=== PATIENT | female | born 1960 | race Caucasian/White ===

== ENCOUNTER 2020-08-23 11:03 | Emergency (ER) | payer MEDICARE, SELFPAY ==
--- NOTE | 2020-08-23 11:10 | ED.GENADULT ---
HPI - General Adult General Chief complaint: Upper Respiratory Infection Stated complaint: sore throat Time Seen by Provider: 08/23/20 11:11 Source: patient and RN notes reviewed Mode of arrival: ambulatory Limitations: no limitations History of Present Illness HPI narrative: 60-year-old female presents with complaints of sore throat, sinus drainage, fatigue, and facial pressure for the past 7 days. Symptoms has increased over the pass 48-72 hours. Mucinex and Zyrtec without relief. No high fevers, drooling, neck or throat swelling. Pain is bilateral. Hurts to swallow. Exacerbation factors consist of eating and drinking. No rhinorrhea. Nasal congestion. No voice change. No nausea, vomiting, or abdominal pain. Tolerating liquids well. Denies chills, dyspnea, difficulty swallowing, jaw pain, dental pain, facial pain, foreign body sensation, and rash. Remains active. LMP Post-menopausal. The patient reports she have not been diagnosed with COVID-19. The patient reports she is not waiting for the results of a COVID-19 lab test. The patient reports she do not have fever, chills, or weakness. The patient reports she do not have a new or worsening cough or shortness of breath. Denies chest pain. The patient reports she do not have any rhinorrhea, congestion, loss of taste, and diarrhea. Denies recent traveling. Denies concerns for COVID-19 or exposures been home with limited outdoor exposure except for essential household needs and return home. At this time, patient is not suspected of having COVID-19. Some parts of this dictation were generated by voice recognition software and may contain typographical and/or grammatical inaccuracies. Related Data Home Medications Medication Instructions Recorded Confirmed estradiol 1 gm VAGINAL 3XW gm 05/20/20 08/23/20 hydrocodone 10 mg-acetaminophen 1 tablet PO TID tablet 05/20/20 08/23/20 325 mg tablet olopatadine 0.2 % eye drops 1 drop OPHTHALMIC (EYE) DAILY ml 05/20/20 08/23/20 Allergies Allergy/AdvReac Type Severity Reaction Status Date / Time No Known Allergies Allergy Verified 08/23/20 11:20 Review of Systems Review of Systems: Narrative: CONSTITUTIONAL: Denies fever, chills, sweats. Complains of fatigue. EYES: Denies visual changes, redness, discharge. ENT: Denies rhinorrhea, otalgia. Complains of sore throat, congestion. CARDIOVASCULAR: Denies chest pain, palpitations, edema. RESPIRATORY: Denies dyspnea, wheezing. Complains of cough. GASTROINTESTINAL: Denies abdominal pain, nausea, vomiting, diarrhea. GENITOURINARY: Denies dysuria, hematuria, abnormal discharge. SKIN: Denies rash or itching. MUSCULOSKELETAL: Denies acute back pain, joint pain, or myalgia. NEUROLOGIC: Denies numbness or focal weakness. PSYCHIATRIC: Denies anxiety or depression. All systems reviewed & are unremarkable except as noted in HPI and below. [facility] Past Medical History Medical History (Updated 08/23/20 @ 11:47 by PRASANNA Lares) Age-related osteoporosis without current pathological fracture Back injury Bipolar II disorder Chronic GERD Degenerative disc disease, cervical Dyspepsia Hypothyroidism, unspecified Mixed hyperlipidemia Post-menopausal Surgical History Surgical History (Updated 08/23/20 @ 11:47 by PRASANNA Lares) History of tonsillectomy History of tubal ligation Family History Family History Father Hypertension Family history of mental disorder Family history of cardiovascular disease Cerebrovascular accident Family history of arthritis Mother Family history of malignant neoplasm of breast in first degree relative Family history of malignant neoplasm of ovary Family history of mental disorder Other Diabetes mellitus Social History Social History (Updated 08/23/20 @ 11:13 by PRASANNA Lares) Smoking status: Former smoker Tobacco type: cigarettes Seco
[2020-08-23 11:13] VITALS: BP 122/96; PULSE 79; RESP 20; TEMP 37.1; O2SAT 100
== END 2020-08-23 11:52 | disposition home or self-care (01) ==
PROVIDERS: Emergency Provider Nurse Practitioner Family; PCP Internal Medicine
DX: J01.90 Acute sinusitis, unspecified (principal); J02.9 Acute pharyngitis, unspecified; Z20.828 Contact with and (suspected) exposure to other viral communicable diseases; Z87.891 Personal history of nicotine dependence; M81.0 Age-related osteoporosis without current pathological fracture; K21.9 Gastro-esophageal reflux disease without esophagitis; E03.9 Hypothyroidism, unspecified; E78.2 Mixed hyperlipidemia
CPT/HCPCS: 87081; 87804; 87880; 99213; G0463

== ENCOUNTER 2020-11-06 13:19 | Outpatient (CLI) | payer MEDICARE, SELFPAY ==
[2020-11-06 13:56] LABS: Hematocrit 41.1 % (37.0-47.0); Hemoglobin 13.7 g/dL (12.0-15.0); Mean Corpuscular HGB Conc 33.3 g/dl (32-36); Mean Corpuscular Hemoglobin 31.6 pg (26-34); Mean Corpuscular Volume 94.9 fl (80-100); Platelet Count Result 348 k/mm3 (150-375); Red Blood Count 4.33 M/mm3 (4.2-5.4); Red Cell Distribution Width 13.2 % (11.5-14.5); White Blood Count 8.3 K/mm3 (4.5-10.0)
[2020-11-06 14:12] LABS: Alanine Aminotransferase 22 U/L (4-35); Anion Gap 8 mmol/L (8-16); Aspartate Amino Transferase 34 U/L (14-36); Blood Urea Nitrogen 16 mg/dL (7-17); Calcium 9.7 mg/dL (8.4-10.2); Carbon Dioxide 27 mmol/L (22-30); Chloride 103 mmol/L (98-107); Cholesterol 192 mg/dL (0-200); Estimated Glomerular Filt Rate > 60; Glucose 100 mg/dL (65-105); HDL Direct 76 mg/dL; Magnesium 2.7 mg/dL (1.6-2.3); Potassium 4.8 mmol/L (3.4-5.0); Sodium 138 mmol/L (137-145); Triglycerides 321 mg/dL (<150); Uric Acid 4.2 mg/dL (2.5-7.5)
[2020-11-06 14:23] LABS: LDL Cholesterol Direct 62 mg/dL
[2020-11-06 15:07] LABS: Vitamin D 25 Hydroxy 61.4 ng/mL
[2020-11-06 15:18] LABS: Folic Acid > 20.0 ng/mL (2.76->20); Vitamin B12 > 1000.0 pg/mL (239-931)
== END 2020-11-06 13:20 | disposition home or self-care (01) ==
LOC: ANHLAB 13:21
PROVIDERS: PCP Internal Medicine; Visit Provider Internal Medicine
DX: K21.9 Gastro-esophageal reflux disease without esophagitis (principal); E78.2 Mixed hyperlipidemia; E03.9 Hypothyroidism, unspecified; F31.81 Bipolar II disorder; M81.0 Age-related osteoporosis without current pathological fracture
CPT/HCPCS: 36415; 77063; 77067; 80048; 80061; 82306; 82607; 82746; 83735; 84450; 84460; 84550; 85027

== ENCOUNTER 2020-11-06 13:46 | Outpatient (CLI) | payer MEDICARE, SELFPAY ==
--- NOTE | ~2020-11-06 | MM_ITS ---
EXAMINATION: MM screening chencho BI w mychal HISTORY: Screening mammogram, family history of breast cancer in her mother. TECHNIQUE: Craniocaudal and mediolateral oblique 3-D tomosynthesis images were obtained and synthetic 2-D images were generated. CAD analysis was submitted and interpreted. COMPARISON: 09/19/2019, 08/06/2018, 07/01/2017 BREAST PARENCHYMAL COMPOSITION: The breasts are heterogeneously dense, which may obscure small masses . FINDINGS: There is no evidence of suspicious mass, calcification, or architectural distortion to sugg est malignancy in either breast. There has been no suspicious interval change. IMPRESSION: 1. No mammographic evidence of malignancy. 2. Recommend routine screening mammography in one year. BI-RADS Category 1: Negative Reviewed, dictated and finalized at location A. 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
== END 2020-11-06 13:47 | disposition home or self-care (01) ==
LOC: ANHIMG 13:48
PROVIDERS: PCP Internal Medicine; Visit Provider Obstetrics & Gynecology
DX: Z12.31 Encounter for screening mammogram for malignant neoplasm of breast (principal)
CPT/HCPCS: 77063; 77067

== ENCOUNTER 2021-04-17 10:51 | Outpatient (CLI) | payer MEDICARE, SELFPAY ==
--- NOTE | ~2021-04-17 | XR_ITS ---
EXAMINATION: XR chest 2V DATE: 04/17/2021 11:55 INDICATION: Bilateral anterior chest pain. TECHNIQUE: Frontal and lateral views of the chest were obtained. COMPARISON: Chest 2 views 11/26/2015 FINDINGS: A calcified right lung nodule is consistent with old granulomatous disease. There is mild s carring at the lung apices. No pleural effusion or pneumothorax. The heart size is normal. IMPRESSION: 1. Stable mild scarring at the lung apices. Reviewed, dictated and finalized at location B.
== END 2021-04-17 10:52 | disposition home or self-care (01) ==
LOC: ANHIMG 10:53
PROVIDERS: PCP Internal Medicine; Visit Provider Internal Medicine
DX: R07.9 Chest pain, unspecified (principal); R91.8 Other nonspecific abnormal finding of lung field
CPT/HCPCS: 71046

== ENCOUNTER 2021-05-29 13:51 | Outpatient (CLI) | payer MEDICARE, SELFPAY ==
--- NOTE | ~2021-05-29 | XR_ITS ---
EXAMINATION: XR ribs LT 2V DATE: 05/29/2021 15:04 INDICATION: Left rib pain. TECHNIQUE: 2 views of the left ribs on 3 radiographs were obtained. COMPARISON: Chest 2 views 04/17/2021 FINDINGS: There is no left-sided pneumonia, pleural effusion, or pneumothorax. The heart size is norm al. IMPRESSION: 1. No rib fracture. Reviewed, dictated and finalized at location A. IMPRESSION: 1. No rib fracture.
--- NOTE | ~2021-05-29 | MMUS_ITS ---
EXAMINATION: MM diagnostic chencho LT w mychal, US breast LT limited HISTORY: Palpable lump in the upper outer quadrant left breast. TECHNIQUE: Craniocaudal, mediolateral, and mediolateral oblique 3-D tomosynthesis images of the left breast were performed and synthetic 2-D images were generated. CAD analysis was submitted and interpr eted. High resolution limited left breast ultrasound was performed. COMPARISON: 11/06/2020, 09/19/2019, 08/06/2018 BREAST PARENCHYMAL COMPOSITION: The breasts are heterogeneously dense, which may obscure small masses . FINDINGS: MAMMOGRAPHIC FINDINGS: There is no evidence of suspicious mass, calcification, or architectural distortion to suggest malig sandra. There has been no suspicious interval change. ULTRASOUND: There is a 1.6 x 0.5 cm hypoechoic area at the 3:00 location 3 cm from the nipple responding to the p alpable abnormality of concern which is in association with a lumpectomy scar and most consistent wit h postsurgical change. No suspicious cystic or solid mass is identified. IMPRESSION: 1. No suspicious mammographic or sonographic correlate is identified for the reported palpable abnorm ality of concern. Findings are most consistent with postsurgical change. Further evaluation at this t maryjane should be based on clinical assessment. Continued follow-up physical examination is recommended. 2. Recommend routine screening mammography in one year. BI-RADS Category 2: Benign finding(s). Reviewed, dictated and finalized at location A. IMPRESSION: 1. No suspicious mammographic or sonographic correlate is identified for the re ported palpable abnormality of concern. Findings are most consistent with posts urgical change. Further evaluation at this time should be based on clinical ass essment. Continued follow-up physical examination is recommended. 2. Recommend routine screening mammography in one year. BI-RADS Category 2: Benign finding(s).
== END 2021-05-29 13:52 | disposition home or self-care (01) ==
PROVIDERS: PCP Internal Medicine; Visit Provider Obstetrics & Gynecology
DX: N63.21 Unspecified lump in the left breast, upper outer quadrant (principal)
CPT/HCPCS: 71100; 76642; 77061; 77065; G0279

== ENCOUNTER 2021-07-11 14:23 | Outpatient (CLI) | payer MEDICARE, SELFPAY ==
--- NOTE | ~2021-07-11 | CT_ITS ---
EXAMINATION:CT diagnostic chest wo con DATE: 07/11/2021 15:00 INDICATION: Chest pain, unspecified. Left rib pain after fall. TECHNIQUE: Computed tomography (CT) of the chest was performed without intravenous contrast. Automate d exposure control and iterative reconstruction technique were employed. The dose-length product (DLP ) was 138.47 mGy-cm. COMPARISON: Left rib radiographs 05/29/2021 FINDINGS: There is mild scarring at the lung apices. There is mild atelectasis bilaterally. There is a left posteromedial diaphragmatic hernia containing fat. Calcified right lung nodules and calcified right hilar and mediastinal lymph nodes are consistent with old granulomatous disease. No pleural eff usion. The heart size is normal. No pericardial effusion. There is mild thoracic spondylosis. Thoraci c dextroscoliosis is noted. There are healed fracture deformities of the anterior third ribs bilatera lly. IMPRESSION: 1. Healed fracture deformities of the anterior third ribs bilaterally. Reviewed, dictated and finalized at location A.
== END 2021-07-11 14:24 | disposition home or self-care (01) ==
PROVIDERS: PCP Internal Medicine; Visit Provider Internal Medicine
DX: R07.9 Chest pain, unspecified (principal)
CPT/HCPCS: 71250

== ENCOUNTER 2021-09-15 10:17 | Outpatient (CLI) | payer MEDICARE, SELFPAY ==
[2021-09-15 11:06] LABS: Cholesterol 227 mg/dL (0-200); HDL Direct 85 mg/dL; Triglycerides 200 mg/dL (<150)
[2021-09-15 11:18] LABS: LDL Cholesterol Direct 72 mg/dL
[2021-09-15 11:50] LABS: Valproic Acid < 10.0 ug/mL (50-120)
== END 2021-09-15 10:18 | disposition home or self-care (01) ==
PROVIDERS: PCP Internal Medicine; Visit Provider Internal Medicine
DX: E03.9 Hypothyroidism, unspecified (principal); Z51.81 Encounter for therapeutic drug level monitoring; E78.5 Hyperlipidemia, unspecified; Z79.899 Other long term (current) drug therapy
CPT/HCPCS: 36415; 80061; 80164; 84443

== ENCOUNTER 2021-11-28 12:38 | Outpatient (CLI) | payer MEDICARE, SELFPAY ==
--- NOTE | ~2021-11-28 | DEXA_ITS ---
Bone Density Report Name: ANGELI BURNHAM Age: 61 Sex: Female Ethnicity: White Date of : 1960 Indication: osteopenia; monitoring treatment; postmenopausal Referring Provider: Indiana Morales Study: Bone densitometry was performed. Exam Date: November 28, 2021 Accession number: [id number] Bone Density: Region BMD T-score Z-score Classification AP Spine (L1-L4) 0.815 -2.1 -0.7 Osteopenia Femoral Neck (Left) 0.695 -1.4 -0.1 Osteopenia Total Hip (Left) 0.819 -1.0 0.0 Normal Total Hip Bilateral Avg 0.830 -0.9 0.1 Normal Femoral Neck (Right) 0.750 -0.9 0.4 Normal Total Hip (Right) 0.840 -0.8 0.1 Normal World Health Organization criteria for BMD impression classify patients as: Normal (T-score at or above -1.0), Osteopenia (T-score between -1.0 and -2.5), or Osteoporosis (T-score at or below -2.5). 10-year Fracture Risk: FRAX not reported because: Treated for osteoporosis Previous Exams: Region Exam Age BMD T-score BMD Change BMD Change Date g/cm2 vs Baseline vs Previous AP Spine(L1-L4) 11/28/2021 61 0.815 -2.1 0.069(9.2%)* -0.025(-3.0%)* 08/06/2018 58 0.841 -1.9 0.094(12.6%)* 0.039(4.9%)* 07/13/2016 56 0.802 -2.2 0.055(7.4%)* 0.055(7.4%)* 07/09/2014 54 0.747 -2.7 Total Hip(Left) 11/28/2021 61 0.819 -1.0 0.038(4.9%)* -0.031(-3.6%)* 08/06/2018 58 0.850 -0.8 0.069(8.8%)* 0.022(2.7%) 07/13/2016 56 0.827 -0.9 0.047(6.0%)* 0.047(6.0%)* 07/09/2014 54 0.781 -1.3 Total Hip(Right) 11/28/2021 61 0.840 -0.8 0.017(2.0%) -0.010(-1.2%) 08/06/2018 58 0.850 -0.8 0.027(3.3%) -0.002(-0.2%) 07/13/2016 56 0.852 -0.7 0.029(3.5%)* 0.029(3.5%)* 07/09/2014 54 0.823 -1.0 *Denotes significance at 95% confidence level, LSC for AP Spine = 0.022 g/cm2, LSC for Total Hip = 0.027 g/cm2 Clinical Information Provided by Patient: Is being treated for osteoporosis Has used the following medications: Fosamax (i.e. alendronate), Calcium Patient maximum height was 64 Menopause Age: 53 No regular weight bearing exercise Onset of menses at age 18 Number of children 3 Impression: The patient has low bone mass, based on the Total Spine T-score. The BMD for the AP Spine(L1-L4) decreased, changing by -3.0% since the last DXA exam. The BMD for the Total Hip(Left) decreased, changing by -3.6% since the last DXA exam. Discussion: SIGNIFICANT BONE LOSS OBSERVED. Adherence to therapy (inclu
== END 2021-11-28 12:39 | disposition home or self-care (01) ==
LOC: ANHIMG 12:39
PROVIDERS: PCP Internal Medicine; Visit Provider Nurse Practitioner
DX: M81.0 Age-related osteoporosis without current pathological fracture (principal); M85.88 Other specified disorders of bone density and structure, other site; M85.852 Other specified disorders of bone density and structure, left thigh
CPT/HCPCS: 77080

== ENCOUNTER → 2021-12-13 09:36 | Outpatient (CLI) | payer MEDICARE, SELFPAY ==
[2021-12-13 20:22] LABS: SARS-CoV-2 RNA PCR Negative
== END ==
PROVIDERS: PCP Internal Medicine; Visit Provider Internal Medicine
DX: R68.89 Other general symptoms and signs (principal); Z20.822 Contact with and (suspected) exposure to COVID-19
CPT/HCPCS: C9803; U0003; U0005

== ENCOUNTER 2022-07-31 09:11 | Outpatient (CLI) | payer MEDICARE, SELFPAY ==
[2022-07-31 09:56] LABS: Alanine Aminotransferase 36 U/L (6-35); Albumin Level 4.7 g/dL (3.5-5.1); Alkaline Phosphatase 77 U/L (38-126); Anion Gap 12 mmol/L (8-16); Aspartate Amino Transferase 48 U/L (14-36); Bilirubin,Total 0.5 mg/dL (0.2-1.3); Blood Urea Nitrogen 15 mg/dL (7-17); Carbon Dioxide 26 mmol/L (22-30); Chloride 100 mmol/L (98-107); Cholesterol 220 mg/dL (0-200); Estimated Glomerular Filt Rate > 60; Glucose 96 mg/dL (65-110); HDL Direct 74 mg/dL; Potassium 4.3 mmol/L (3.4-5.0); Sodium 138 mmol/L (137-145); Triglycerides 248 mg/dL (<150)
[2022-07-31 10:06] LABS: LDL Cholesterol Direct 73 mg/dL
[2022-07-31 10:11] LABS: Vitamin D 25 Hydroxy 53.9 ng/mL
== END 2022-07-31 09:12 | disposition home or self-care (01) ==
PROVIDERS: PCP Internal Medicine; Visit Provider Internal Medicine
DX: E78.2 Mixed hyperlipidemia (principal); Z13.21 Encounter for screening for nutritional disorder; G47.00 Insomnia, unspecified
CPT/HCPCS: 36415; 80053; 80061; 82306; 84443

== ENCOUNTER 2023-02-08 08:15 | Outpatient (CLI) | payer MEDICARE, SELFPAY ==
[2023-02-08 09:31] LABS: Alanine Aminotransferase 27 U/L (6-35); Albumin Level 4.8 g/dL (3.5-5.1); Alkaline Phosphatase 77 U/L (38-126); Anion Gap 7 mmol/L (8-16); Aspartate Amino Transferase 39 U/L (14-36); Bilirubin,Total 0.7 mg/dL (0.2-1.3); Blood Urea Nitrogen 18 mg/dL (7-17); Calcium 9.6 mg/dL (8.4-10.2); Carbon Dioxide 27 mmol/L (22-30); Chloride 105 mmol/L (98-107); Estimated Glomerular Filt Rate > 60; Glucose 92 mg/dL (65-110); Potassium 4.3 mmol/L (3.4-5.0); Sodium 139 mmol/L (137-145)
== END 2023-02-08 08:16 | disposition home or self-care (01) ==
PROVIDERS: PCP Internal Medicine; Visit Provider Internal Medicine
DX: R79.89 Other specified abnormal findings of blood chemistry (principal); F31.81 Bipolar II disorder; E03.9 Hypothyroidism, unspecified
CPT/HCPCS: 36415; 80053; 84439; 84443

== ENCOUNTER 2023-02-16 14:53 | Outpatient (CLI) | payer MEDICARE, SELFPAY ==
--- NOTE | ~2023-02-16 | MM_ITS ---
EXAMINATION: MM screening chencho BI w mychal HISTORY: Screening TECHNIQUE: Craniocaudal and mediolateral oblique 3-D tomosynthesis images were obtained and synthetic 2-D images were generated. CAD analysis was submitted and interpreted. COMPARISON: Comparison to multiple prior studies sequentially, with oldest reviewed study dated 07/2015. BREAST PARENCHYMAL COMPOSITION: The breasts are heterogeneously dense, which may obscure small masses FINDINGS: There are developing bilateral breast asymmetries involving the upper outer quadrant of the right breast and scattered in the left breast. No suspicious calcifications. IMPRESSION: 1. Developing bilateral breast asymmetries. 2. Additional mammographic views and possible breast ultrasound are recommended. BI-RADS Category 0: Incomplete: Needs additional imaging evaluation. Reviewed, dictated and finalized at location A. IMPRESSION: 1. Developing bilateral breast asymmetries. 2. Additional mammographic views and possible breast ultrasound are recommended . BI-RADS Category 0: Incomplete: Needs additional imaging evaluation.
== END 2023-02-16 14:54 | disposition home or self-care (01) ==
PROVIDERS: PCP Internal Medicine; Visit Provider Nurse Practitioner Obstetrics & Gynecology
DX: Z12.31 Encounter for screening mammogram for malignant neoplasm of breast (principal); R92.8 Other abnormal and inconclusive findings on diagnostic imaging of breast
CPT/HCPCS: 77063; 77067

== ENCOUNTER 2023-04-28 10:36 | Outpatient (CLI) | payer MEDICARE, SELFPAY ==
[2023-04-28 12:20] LABS: Strep Group A RT-PCR NOT DETECTED (Negative)
== END 2023-04-28 10:37 | disposition home or self-care (01) ==
LOC: ANHLAB 10:39
PROVIDERS: PCP Family Medicine; Visit Provider Nurse Practitioner Family
DX: J02.9 Acute pharyngitis, unspecified (principal)
CPT/HCPCS: 87651

== ENCOUNTER 2023-06-07 11:25 | Outpatient (CLI) | payer MEDICARE, MEDICAID, SELFPAY ==
--- NOTE | ~2023-06-07 | MMUS_ITS ---
EXAMINATION: MM diagnostic chencho BI w mychal, US breast BI complete HISTORY: Follow-up breast asymmetries TECHNIQUE: Additional 3-D tomosynthesis images of the breasts were performed and synthetic 2-D images were generated. CAD analysis was submitted and interpreted. High resolution bilateral complete breas t ultrasound was performed. COMPARISON: Comparison to multiple prior studies sequentially, with oldest reviewed study dated 07/01. BREAST PARENCHYMAL COMPOSITION: The breasts are heterogeneously dense, which may obscure small masses FINDINGS: MAMMOGRAPHIC FINDINGS: There are bilateral breast asymmetries which are less apparent with spot compression and mediolateral views using, most likely superimposed fibroglandular tissue. ULTRASOUND: Complete bilateral US of all 4 quadrants of the breasts and retroareolar region was reviewed. Right breast ultrasound: There are multiple cysts of the right breast. At 1:00, 1 cm from the nipple is an irregular shaped hypoechoic mass measuring 7 mm with some angular margins, mixed posterior atte nuation, parallel orientation and no internal vascularity. Left breast: At 12:00, near the nipple there is an irregular shaped hypoechoic mass measuring 5 mm wi th antiparallel configuration, low level internal echoes, no posterior features. There are multiple c ysts of the left breast. At 4:00 there is an irregular shaped antiparallel hypoechoic mass with mixed posterior attenuation measuring 7 mm maximum dimension. IMPRESSION: 1. Abnormal bilateral breast masses by ultrasound. 2. Bilateral ultrasound-guided breast biopsies recommended, including the right breast at 1:00, 1 cm from the nipple and in the left breast at 12:00 near the nipple and 4:00. BI-RADS category 4, suspicious findings. Reviewed, dictated and finalized at location A. IMPRESSION: 1. Abnormal bilateral breast masses by ultrasound. 2. Bilateral ultrasound-guided breast biopsies recommended, including the right breast at 1:00, 1 cm from the nipple and in the left breast at 12:00 near the nipple and 4:00. BI-RADS category 4, suspicious findings.
== END 2023-06-07 11:26 | disposition home or self-care (01) ==
LOC: ANHIMG 11:27
PROVIDERS: PCP Family Medicine; Visit Provider Obstetrics & Gynecology
DX: R92.8 Other abnormal and inconclusive findings on diagnostic imaging of breast (principal)
CPT/HCPCS: 76641; 77062; 77066; G0279

== ENCOUNTER 2023-07-13 09:29 | Outpatient (CLI) | payer MEDICARE, SELFPAY ==
[2023-07-13 10:31] LABS: Basophils Percent Auto 0.5 % (0.2-1.2); Eosinophils Absolute Auto 0.1 K/mm3 (0-0.3); Hematocrit 45.7 % (37.0-47.0); Hemoglobin 14.7 g/dL (12.0-15.0); Immature Granulocyte Absolute 0.02 K/mm3 (0.00-0.031); Immature Granulocyte Percent A 0.4 % (0-0.5); Lymphocytes Absolute Auto 2.04 K/mm3 (0.9-3.2); Lymphocytes Percent Auto 36.3 % (18.3-44.2); Mean Corpuscular HGB Conc 32.2 g/dl (32-36); Mean Corpuscular Hemoglobin 31.3 pg (26-34); Mean Corpuscular Volume 97.2 fl (80-100); Mean Platelet Volume 10.3 fl (7.4-10.4); Monocytes Absolute Auto 0.6 K/mm3 (0.1-0.6); Monocytes Percent Auto 10.9 % (2.6-8.5); Neutrophils Absolute Auto 2.8 K/mm3 (1.3-6.7); Neutrophils Percent Auto 49.9 % (45.5-73.1); Platelet Count Result 312 k/mm3 (150-375); Red Cell Distribution Width 13.3 % (11.5-14.5); White Blood Count 5.6 K/mm3 (4.5-10.0)
[2023-07-13 10:52] LABS: Alanine Aminotransferase 43 U/L (6-35); Albumin Level 4.7 g/dL (3.5-5.1); Alkaline Phosphatase 80 U/L (38-126); Anion Gap 11 mmol/L (8-16); Aspartate Amino Transferase 54 U/L (14-36); Bilirubin,Total 0.9 mg/dL (0.2-1.3); Blood Urea Nitrogen 17 mg/dL (7-17); Calcium 9.6 mg/dL (8.4-10.2); Carbon Dioxide 26 mmol/L (22-30); Chloride 101 mmol/L (98-107); Estimated Glomerular Filt Rate > 60; Glucose 98 mg/dL (65-110); HDL Direct 73 mg/dL; Potassium 3.9 mmol/L (3.4-5.0); Sodium 138 mmol/L (137-145); Triglycerides 444 mg/dL (<150)
[2023-07-13 11:00] LABS: LDL Cholesterol Direct 159 mg/dL
[2023-07-13 11:57] LABS: Cholesterol 395 mg/dL (0-200)
== END 2023-07-13 09:30 | disposition home or self-care (01) ==
LOC: ANHLAB 09:31
PROVIDERS: PCP Family Medicine; Visit Provider Nurse Practitioner Family
DX: Z51.81 Encounter for therapeutic drug level monitoring (principal); E03.9 Hypothyroidism, unspecified; R79.89 Other specified abnormal findings of blood chemistry; G47.00 Insomnia, unspecified; R07.9 Chest pain, unspecified
CPT/HCPCS: 36415; 80053; 80061; 84443; 85025

== ENCOUNTER 2023-10-19 08:34 | Outpatient (CLI) | payer MEDICARE, MEDICAID, SELFPAY ==
--- NOTE | ~2023-10-19 | US_ITS ---
US abdomen limited INDICATION: Abnormal lab values. PROCEDURE: Realtime right upper abdominal ultrasound. COMPARISON: No prior studies for comparison. FINDINGS: The pancreas is normal without focal mass or pancreatic ductal dilation. Liver echotexture is increased, consistent with fatty infiltration. There is normal directional flow in the portal ve in. The gallbladder is normal without stones, gallbladder wall thickening or pericholecystic fluid. Comm on bile duct measures 3 mm. No sonographic Motley's sign. IMPRESSION: 1: Hepatic steatosis. Reviewed, dictated and finalized at location L. 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
== END 2023-10-19 08:35 | disposition home or self-care (01) ==
LOC: ANHIMG 08:37
PROVIDERS: PCP Family Medicine; Visit Provider Family Medicine
DX: R74.8 Abnormal levels of other serum enzymes (principal); K76.0 Fatty (change of) liver, not elsewhere classified
CPT/HCPCS: 76705

== ENCOUNTER 2024-03-03 13:07 | Outpatient (CLI) | payer MEDICARE, MEDICAID, SELFPAY ==
--- NOTE | ~2024-03-03 | DEXA_ITS ---
Bone Density Report Name: ANGELI BURNHAM Age: 63 Sex: Female Ethnicity: White Date of : 1960 Indication: osteopenia; rheumatoid arthritis; Referring Provider: ALANNAH ALCALA Study: Bone densitometry was performed. Exam Date: March 03, 2024 Accession number: [id number] Bone Density: Region BMD T-score Z-score Classification AP Spine(L1-L4) 0.824 -2.0 -0.4 Osteopenia Femoral Neck (Left) 0.698 -1.4 0.0 Osteopenia Total Hip (Left) 0.826 -1.0 0.1 Normal Femoral Neck (Right) 0.699 -1.4 0.1 Osteopenia Total Hip (Right) 0.811 -1.1 0.0 Osteopenia Total Hip Mean 0.819 -1.1 0.1 Osteopenia World Health Organization criteria for BMD impression classify patients as: Normal (T-score at or above -1.0), Osteopenia (T-score between -1.0 and -2.5), or Osteoporosis (T-score at or below -2.5). 10-year Fracture Risk(1): Major Osteoporotic Fracture 10% Hip Fracture 0.9% Reported Risk Factors: [place] (), Neck BMD=0.698, BMI=23.7, rheumatoid arthritis (1) FRAX(R) Version 3.08. Fracture probability calculated for an untreated patient. Fracture probability may be lower if the patient has received treatment. Previous Exams: Region Exam Age BMD T-score BMD Change BMD Change Date g/cm2 vs Baseline vs Previous AP Spine (L1-L4) 03/03/2024 63 0.824 -2.0 0.078 (10.4%)* 0.009 (1.1%) 11/28/2021 61 0.815 -2.1 0.069 (9.2%)* -0.025 (-3.0%) 08/06/2018 58 0.841 -1.9 0.094 (12.6%)* 0.039 (4.9%)* 07/13/2016 56 0.802 -2.2 0.055 (7.4%)* 0.055 (7.4%)* 07/09/2014 54 0.747 -2.7 Total Hip(Left) 03/03/2024 63 0.826 -1.0 0.045 (5.8%)* 0.007 (0.9%) 11/28/2021 61 0.819 -1.0 0.038 (4.9%)* -0.031 (-3.6%) 08/06/2018 58 0.850 -0.8 0.069 (8.8%)* 0.022 (2.7%) 07/13/2016 56 0.827 -0.9 0.047 (6.0%)* 0.047 (6.0%)* 07/09/2014 54 0.781 -1.3 Total Hip(Right) 03/03/2024 63 0.811 -1.1 -0.012 (-1.5%) -0.029 (-3.5%) 11/28/2021 61 0.840 -0.8 0.017 (2.0%) -0.010 (-1.2%) 08/06/2018 58 0.850 -0.8 0.027 (3.3%) -0.002 (-0.2%) 07/13/2016 56 0.852 -0.7 0.029 (3.5%)* 0.029 (3.5%)* 07/09/2014 54 0.823 -1.0 *Denotes significance at 95% confidence level, LSC for AP Spine = 0.022 g/cm2, LSC for Total Hip = 0.027 g/cm2 Clinical Information Provided by Patient: Has rheumatoid arthritis Has used the following medications: HRT (i.e. estrogen/hormone therapy), Vitamin D, Calcium Patient maximum height was 64.5 Menopause Age:
== END 2024-03-03 13:08 | disposition home or self-care (01) ==
LOC: ANHIMG 13:09
PROVIDERS: PCP Family Medicine; Visit Provider Family Medicine
DX: M81.0 Age-related osteoporosis without current pathological fracture (principal); M85.88 Other specified disorders of bone density and structure, other site; M85.852 Other specified disorders of bone density and structure, left thigh; M85.851 Other specified disorders of bone density and structure, right thigh
CPT/HCPCS: 77080

== ENCOUNTER 2024-08-15 13:42 | Outpatient (CLI) | payer MEDICARE, MEDICAID, SELFPAY ==
[2024-08-16 21:09] LABS: Amphetamines NEGATIVE ng/mL (<500); Barbiturates NEGATIVE ng/mL (<300); Benzodiazepines POSITIVE ng/mL (<100); Cocaine Metabolite NEGATIVE ng/mL (<150); Marijuana Metabolite NEGATIVE ng/mL (<20); Methadone Metabolite NEGATIVE ng/mL (<100); Opiates POSITIVE ng/mL (<100); Oxidant NEGATIVE mcg/mL (<200); PCP NEGATIVE ng/mL (<25); pH 6.3 (4.5-9.0)
== END 2024-08-15 13:43 | disposition home or self-care (01) ==
PROVIDERS: PCP Family Medicine; Visit Provider Family Medicine
DX: Z79.899 Other long term (current) drug therapy (principal)
CPT/HCPCS: 80307

== ENCOUNTER 2025-02-12 16:07 | Outpatient (CLI) | payer MEDICARE, MEDICAID, SELFPAY ==
[2025-02-12 16:31] LABS: Hematocrit 40.1 % (37.0-47.0); Hemoglobin 13.3 g/dL (12.0-15.0); Mean Corpuscular HGB Conc 33.2 g/dl (32-36); Mean Corpuscular Hemoglobin 32.4 pg (26-34); Mean Corpuscular Volume 97.6 fl (80-100); Platelet Count Result 235 k/mm3 (150-375); Red Blood Count 4.11 M/mm3 (4.2-5.4); Red Cell Distribution Width 14.2 % (11.5-14.5); White Blood Count 6.1 K/mm3 (4.5-10.0)
[2025-02-12 16:52] LABS: LDL Cholesterol Direct 85 mg/dL
[2025-02-12 16:58] LABS: Vitamin D 25 Hydroxy 46.4 ng/mL
[2025-02-12 17:46] LABS: Alanine Aminotransferase 79 U/L (6-35); Albumin Level 4.6 g/dL (3.5-5.1); Alkaline Phosphatase 101 U/L (38-126); Anion Gap 10 mmol/L (4-12); Aspartate Amino Transferase 115 U/L (14-36); Bilirubin,Total 1.1 mg/dL (0.2-1.3); Blood Urea Nitrogen 16 mg/dL (7-17); Calcium 9.8 mg/dL (8.4-10.2); Carbon Dioxide 25 mmol/L (22-30); Chloride 101 mmol/L (98-107); Estimated Glomerular Filt Rate > 60; Glucose 96 mg/dL (65-110); HDL Direct 71 mg/dL; Potassium 4.3 mmol/L (3.4-5.0); Sodium 136 mmol/L (137-145)
[2025-02-12 17:48] LABS: Cholesterol 379 mg/dL (0-200); Triglycerides 714 mg/dL (<150)
--- OUTSIDE RECORDS SUMMARY | 2025-02-12 18:25 | XMS_ITS | Data Portability ---
Author Organization [facility] Address [address] [place] [address] Care Team Providers Care Sales Representative [employer] Name Role Phone DANIELE GARRET Primary Care Provider Assessment Encounter Date Assessment Date Assessment LastModified by Organization Details LastModified Time 12/29/2021 12/29/2021 healthy female exam/menopause patient declines std testing pap done mammogram due in May colonoscopy UTD dexa repeat 2 years Encouraged weight bearing exercise and 1500mg daily of Calcium with Vitamin D estrace refilled discussed that I do not prescribe testosterone for women due to insufficient efficacy and safety data FU 1 year or prn Not available 12/29/2021 15:15:57 03/16/2024 03/16/2024 Annual gynecological exam performed. Patient will come back in a year unless there are new symptoms. Not available 03/15/2024 10:09:54 Plan of Treatment Reminders Order Date Submit Date Provider Last Modified By Organization Details Last Modified Time Details Appointments None recorded. Lab None recorded. Referral None recorded. Procedures None recorded. Surgeries None recorded. Imaging None recorded. Medication Orders estradiol 0.01% (0.1 mg/gram) vaginal cream 2023 024 [id number], [address], [place], [place], [id number], 14:21:09 nystatin-t riamcinolo ne 100,000 unit/gram- 0.1 % topical ointment 2023 024 [email or web address] #[id number], [address] [place] [address], [id number], 4 15:29:02 Valtrex 1 gram tablet [address] [facility] #[id number], [address] [facility] [address] [place] [address], [id number], 4 10:51:29 lidocaine 5 % topical ointment [address] [facility] #[id number], [address] [facility] [address] [place] [address], [id number], 4 10:50:05 estradiol 0.01% (0.1 mg/gram) vaginal cream [address] [facility] #46041, [address] [facility] [address] [place] [address], [id number], 4 10:49:42 Patient TargetsNo targets recorded. Patient InstructionsNo instructions recorded. Reason for Referral None Reported. Results Created Date Observation Date Name Description Value Unit Range Abnormal Flag Note LastModifiedBy Organization Detail LastModifiedTime 12/29/19 22 12/29/2021 IMAGE GUIDE D PAP AND HPV REGAR DLESS image guided Pap, HPV regardless of Pap result SEE RESULT S BELOW CASE REPOR T: Cytol ogy Gynec ologi jhon Repor t Case: [id number] Autho nesha g Provi aundrea: Waleska Morin MD Colle cted: 12/29 1502 Order ing Locat ion: [place] Patho log[facility] Recei [place]: 12/30 0418 First Scree n: Nacha mpass ak, Sivil ay, CT Speci men: Scree zenobia Pap - Image d, Cervi x STATE MENT OF ADEQU ACY: Satis facto ry for evalu ation Trans forma tion zone compo nent prese nt FINAL DIAGN OSIS: Negat karla for Intra epith elial Lesio n or Malig sandra (NIL) . Elect travis adamson nancy d by Brigitte ruggiero, Ej anne, CT on 2021 at 4:09 PM ----- ----- ----- ----- ----- ----- ----- ----- ----- ----- ----- ----- ----- ----- ----- ----- ----- ---- HPV RESUL TS: HPV mRNA E6/E7 : No HPV mRNA Detec fabienne NOTE: This high risk HPV mRNA assay detec ts fourt een high- risk HPV types (16, 18, 31, 33, 35, 39, 45, 51, 52, 56, 58, 59, 66, 68) witho ut diffe renti ation . COMME NT: Note: This speci men was revie wed by a Cytot echno logis t and/o r Patho logis t (as indic ated in this repor t) after evalu ation using the Thinp rep Imagi ng Syste m. CLINI JHON INFOR MATIO N: Menst rual Statu s: LMP (if appli cable ): Clini jhon Histo ry/Pr eviou s Pap: Type of Neopl garth (if appli cable ): Signi fican t Clini jhon Findi ngs: Other Histo ry: Hormo ascencion (if appli cable ): PAP EDUCA ANTONIO L NOTE: The Pap Test is a scree zenobia test with an inher ent false negat karla rate. Liqui d-bas ed sampl ing may decre ase, but will not elimi denton, false negat akrla resul ts. A negat karla resul t does not precl ude the prese nce and/o r devel opmen t of disea se, since the prese nce of abnor mal cells in the sampl e depen ds on the locat ion of the lesio n and sampl ing techn ique. Tamir nued regul ar scree zenobia is the best metho d of cance r preve ntion . If repor fabienne cytol ogic findi ng do not corre late with physi jhon and/o r histo rical findi ngs, furth er inves tigat ion is recom cedrick d, as clini carlos cabral nted. Not Available [facility] (Lab) [address] [facility], [place], [address], 01/02/2022 17:12:41 10/27/20 23 10/27/2023 CULTU RE: AEROB IC/AN AEROB IC result report SEE RESULT S BELOW abnormal Test: Cultu re: Aerob ic/An aerob ic Speci men Sourc e: Other Speci men Type: Micro biolo gy Speci men Speci men Date: 2022 2:57 PM Resul t Date: 10/31 9:30 AM Resul t Statu s: Final resul t Abnor mal: Yes Jarrett lord Lab: [facility] [address] [facility] [address] Tel: CULTU RE ----- ----- ----- --- Moder ate Growt h Enter obact er cloac ae compl ex (Abno rmal) Moder ate Growt h Danae l skin nas Cultu re sampl es colle cted from sites that are proxi mal to danae l anaer obic nas , do not provi de usefu l infor jerome strange. The anaer obic porti on of this cultu re has been credi fabienne. STAIN ----- ----- ----- --- Few Gram posit karla cocci seen SUSCE PTIBI LITY ----- ----- ----- --- Enter obact er cloac ae compl ex METHO D MARY ----- ----- ----- ----- ----- ---- ----- ----- ----- ----- --- AMIKA SUKUMAR <=16 ug/mL Susce ptibl e AZTRE ONAM <=4 ug/mL Susce ptibl e CEFEP MARYJANE <=4 ug/mL Susce ptibl e CEFTA ZIDIM E <=1 ug/mL Susce ptibl e CEFTR IAXON E <=1 ug/mL Susce ptibl e CIPRO FLOXA SUKUMAR <=1 ug/mL Susce ptibl e GENTA MICIN <=4 ug/mL Susce ptibl e LEVOF LOXAC IN <=2 ug/mL Susce ptibl e MEROP ENEM <=1 ug/mL Susce ptibl e PIPER ACILL IN/TA ZOBAC POWER <=16 ug/mL Susce ptibl e TOBRA MYCIN <=4 ug/mL Susce ptibl e TRIME THOPR IM/BROWER LFAME THOXA ZOLE <=2 ug/mL Susce ptibl e SUSCE PTIBI LITY COMME NTS ----- ----- ----- ----- ----- ----- ----- Enter obact er cloac ae compl ex Enter obact er cloac ae, Klebs iella aerog luis and Citro bacte r freun dii are consi dered to be moder ate to high risk for clini carlos signi fican t AmpC produ ction . Since AmpC resis tance can be induc ed durin g antib iotic treat ment, stand yulia ?-lac tams other than cefep maryjane and merop enem shoul d be avoid ed regar dless of cultu re susce ptibi litie s. Non ?-lac power antib iotic s such as trime thopr im-browre lfame thoxa zole, cipro floxa sukumar and levof loxac in can also be consi dered if the organ ism is susce ptibl e. Not Available [facility] (Lab) [address], [place], [address], 10/31/2023 10:34:20 10/27/20 23 10/27/2023 CULTU RE: HERPE S SIMPL EX VIRUS (HSV) , REFLE X TYPIN G source LESION SCRAPI NGS Not Available [facility] (Lab) [address], [place], [address], 10/31/2023 10:34:20 10/27/20 23 10/27/2023 CULTU RE: HERPE S SIMPL EX VIRUS (HSV) , REFLE X TYPIN G hsv culture, body fluid NOT ISOLAT ED swab taken from perin eum Perfo rming Organ izati on Infor matio n: Site ID: CB Name: Rajat garcia s-Che casie Ventura Addre ss: [address] [place], [place] [id number] Dire tor: Antho ny V [place] s Not Available [facility] (Lab) [address] [facility], [place], [address], 10/31/2023 10:34:20 03/16/20 24 03/16/2024 CULTU RE: AEROB IC/AN AEROB IC result report SEE RESULT S BELOW abnormal Test: Cultu re: Aerob ic/An aerob ic Speci men Sourc e: Vagin a Speci men Type: Micro biolo gy Speci men Speci men Date: 2023 4:08 PM Resul t Date: 2023 12:51 PM Resul t Statu s: Final resul t Abnor mal: Yes Resul ting Lab: [facility] [address] [facility] [address] Tel: CULTU RE ----- ----- ----- --- Moder ate Growt h Strep tococ cus agala ctiae (Grou p B) ([facility]) Moder ate Growt h Allos cardo via omnic olens ([facility]) Cultu re sampl es colle cted from sites that are proxi mal to dnaae l anaer obic nas , do not provi de usefu l infor matio n. The anaer obic porti on of this cultu re has been credi fabienne. STAIN ----- ----- ----- --- Many Gram varia ble rods seen Few Gram posit karla cocci seen No Neutr ophil s seen Not Available [facility] (Lab) [address] [facility], [place], [address], 03/19/2024 13:54:26 03/16/20 24 03/16/2024 VAGIN ITIS/ VAGIN OSIS, DNA PROBE lizzy sp. detection, direct probe Negati ve negati ve Not Available [facility] (Lab) [address] [place], [address], 03/19/2024 13:54:27 03/16/20 24 03/16/2024 VAGIN ITIS/ VAGIN OSIS, DNA PROBE gardnerella vag. detection, direct probe Positi ve negati ve abnormal Not Available [facility] (Lab) [address] [facility], [place], [address], 03/19/2024 13:54:27 03/16/20 24 03/16/2024 VAGIN ITIS/ VAGIN OSIS, DNA PROBE trichomonas vag. detection, direct probe Negati ve negati ve Not Available [facility] (Lab) [address] [facility], [place], [address], 03/19/2024 13:54:27 03/16/20 24 03/16/2024 IMAGE GUIDE D PAP AND HPV REGAR DLESS image guided Pap, HPV regardless of Pap result SEE RESULT S BELOW abnormal CASE REPOR T: Cytol ogy Gynec ologi jhon Repor t Case: [id number] Autho iandasia nathalia Provi aundrea: Leticia Tamayo, HANNA Colle cted: 03/16 1607 Order ing Locat ion: [place] Patho logy Recei [place]: 03/17 0214 First Scree n: Tea Alexandra , CT Speci men: Scree zenobia Pap - Image d, Cervi x STATE MENT OF ADEQU ACY: Satis facto ry for evalu ation Trans forma tion zone compo nent prese nt FINAL DIAGN OSIS: Negat karla for Intra epith elial Julianna strange or Clement flores (NIL) . Elect travis cruz d by Tea Alexandra CT on 024 at 2:44 PM ----- ----- ----- ----- ----- ----- ----- ----- ----- ----- ----- ----- ----- ----- ----- ----- ----- ---- HPV RESUL TS: HPV mRNA E6/E7 : Posit karla - HPV mRNA Detec fabienne HPV GENOT YPE 16 (ALEXY) : Not Detec fabienne HPV GENOT YPE 18/45 (ALEXY) : Not Detec fabienne NOTE: This high risk HPV mRNA assay detec ts fourt een high- risk HPV types (16, 18, 31, 33, 35, 39, 45, 51, 52, 56, 58, 59, 66, 68) witho ut diffe renti ation . This assay can diffe renti ate HPV 16 from HPV 18/45 , but does not diffe renti ate betwe en HPV 18 and HPV 45. A negat karla HPV 16, 18/45 genot ype assay resul t does not exclu de the possi bilit y of cytol ogic abnor malit ies or of futur e or under lying SUKUMAR 1, SUKUMAR 3 or cance r. COMME NT: This speci men was revie wed by a Cytot echno logis t and/o r Patho logis t (as indic ated in this repor t) after evalu ation using the Thinp rep Imagi ng Syste m. CLINI JHON INFOR MATIO N: Menst rual Statu s: LMP (if appli cable ): Clini jhon Histo ry/Pr eviou s Pap: Type of Neopl garth (if appli cable ): Signi fican t Clini jhon Findi ngs: Other Histo ry: Hormo ascencion (if appli cable ): PAP EDUCA ANTONIO L NOTE: The Pap Test is a scree zenobia test with an inher ent false negat karla rate. Liqui d-bas ed sampl ing may decre ase, but will not elimi denton, false negat karla resul ts. A negat karla resul t does not precl ude the prese nce and/o r devel opmen t of disea se, since the prese nce of abnor mal cells in the sampl e depen ds on the locat ion of the lesio n and sampl ing techn ique. Tamir nued regul ar scree zenobia is the best metho d of cance r preve ntion . If repor fabienne cytol ogic findi ng do not corre late with physi jhon and/o r histo rical findi ngs, furth er inves tigat ion is recom cedrick d, as clini carlos cabral nted. Not Available [facility] (Lab) [address], [place], [address], 03/22/2024 15:48:59 05/12/20 23 02/16/2023 MAMMO , scree zenobia, bilat eral No observ ation record ed. [email or web address] [address] [place] [address], [id number], 05/27/2023 10:43:55 06/07/20 23 06/07/2023 MAMMO , diagn ostic , digit al, bilat eral No observ ation record ed. [email or web address] [facility] [address] [place] [address] [place] [address], [phone], 09/13/2023 15:45:45 06/07/20 23 06/07/2023 MAMMO , diagn ostic , digit al, bilat eral No observ ation record ed. [email or web address] [place] [address], [id number], 06/08/2023 17:42:17 Result Notes None recorded. 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 [address] 10:38:[address] Concept Completed 201604/02/2021 Encntr for gun number exam (general ) (routine ) w/o abn findings ;Practic e ID: [id number] Waleska Garcia MD [address], [place], [address], [facility] 1 10:38:07 Screenin g for malignan t neoplasm of rectum Completed 201604/02/2021 Encounte r for screenin g for malignan t neoplasm of rectum;P ractice ID: [id number] Waleska Garcia MD [address], [place], [address], [facility] 1 10:38:02 Superfic ial pain on intercou rse 425936768 Active 2017 Superfic ial (introit al) dyspareu jennifer;Prac cortez ID: 0001 Not Available [facility] 0 17:22:27 Screenin g for malignan t neoplasm of cervix Completed 201804/02/2021 Encounte r for screenin g for malignan t neoplasm of cervix;P ractice ID: [id number] aWleska Garcia MD [address], [place], [address], [facility] 1 10:38:00 Acute vaginiti s 83518723 Completed 201904/02/2021 Acute vaginiti s;Practi ce ID: [id number] Waleska Garcia MD [address], [place], [address], [facility] 1 10:37:52 Speciali zed medical examinat ion Completed 201204/02/2021 Gynecolo gical Examinat ion;Tai rded Elsewher e: No Locat ion: [facility] S ource: EHR Paste Mixer carlitos: N Practi ce ID: [id number] Delta lable Time: 01:45:00 PM Waleska Garcia MD [address], [place], [address], [facility] 1 10:38:09 Breast lump 06075686 Active 2014 Lump in breast;R ecorded Elsewher e: No Locat ion: [facility] S ource: EHR Paste Mixer carlitos: N Practi ce ID: [id number] Delta lable Time: 11:30:00 AM Not Available [facility] 0 17:22:27 Adult health examinat ion Completed 201204/02/2021 Routine Medical Exam;Rec orded Elsewher e: No Locat ion: [facility] S ource: EHR Paste Mixer carlitos: N Harleyti ce ID: [id number] Delta lable Time: 01:45:00 PM Waleska Garcia MD [address], [place], [address], [facility] 1 10:37:54 Ulcerati on of vulva 32729388 Completed 201504/02/2021 Ulcerati on of vulva;Re corded Elsewher e: No Locat ion: [facility] S ource: EHR Paste Mixer carlitos: N Harleyti ce ID: [id number] Delta lable Time: 02:15:00 PM Waleska Garcia MD [address], [place], [address], [facility] 1 10:38:14 Problem Notes None recorded. Procedures Surgical History Date Name Laterality Status Provider Name and Address Organization Details Recorded Time 4 Date of Last Pap Smear completed Odalis Roche [facility] 04/06/2024 15:35:59 Tubal Ligation completed Faiza Murphy [facility] 10/27/2023 11:24:27 Imaging Results Imaging Date Name Status LastModified by Organiz ation Details LastModified Time 02/16/2023 MAMMO, screening, bilateral completed [email or web address] [place] [id number] [facility] [address] [place] [address], [id number], 05/27/2023 10:43:55 06/07/2023 MAMMO, diagnostic, digital, bilateral completed [email or web address] [facility] [address] [place] [address], [phone], 09/13/2023 15:45:45 06/07/2023 MAMMO, diagnostic, digital, bilateral completed [email or web address] [place], [place] [address] [facility] [address] [place] [address], [id number], 06/08/2023 17:42:17 Procedure Notes None recorded. Medical Equipment None Reported. Allergies No known drug allergies Medications Name Sig Start Date Stop Date Status Note LastModified by Organization Details LastModified Time amoxicill in 500 mg capsule 02/27 completed Not Available Not Available Not Available doxycycli ne hyclate 100 mg capsule TAKE 1 CAPSULE BY MOUTH TWICE DAILY FOR 7 DAYS 04/06 completed Not Available Not Available Not Available atorvasta tin 20 mg tablet TAKE 1 TABLET BY MOUTH DAILY 02/27 completed Not Available Not Available Not Available trazodone 50 mg tablet TAKE 1 TABLET BY MOUTH EVERY DAY AT BEDTIME active Not Available Not Available No t Available atorvasta tin 10 mg tablet take 1 tablet by oral route every day 02/27 completed Prescrib ed Elsewher e: Yes Loca tion: Andrea [facility] M odify By: cary hesterunttamara DateTime : 02/08/20 01:15:00 PM Not Available Not Available Not Available alprazola m 1 mg tablet TAKE 1 TABLET BY MOUTH THREE TIMES DAILY NEEDED FOR ANXIETY active Not Available Not Available No t Available valacyclo vir 1 gram tablet TAKE 1 TABLET BY MOUTH EVERY 12 HOURS FOR 7 DAYS 02/27 completed Not Available Not Available Not Available fluconazo le 200 mg tablet take 1 tablet by oral route on days 1, 4 & 7. 04/02 completed Prescrib ed Elsewher e: No Locat ion: Andrea [facility] odify By: humphrey anastacia Enco unter DateTime : 02/08/20 01:15:00 PM Not Available Not Available Not Available Effexor XR 37.5 mg capsule,e xtended release take 1 capsule by oral route every day with food 04/11 completed Prescrib ed Elsewher e: Yes Loca tion: [facility] odify By: estela sales DateTime : 04/06/20 13 02:22:06 PM Not Available Not Available Not Available alendrona te 70 mg tablet TAKE 1 TABLET BY MOUTH WEEKLY 02/27 completed Not Available Not Available Not Available metronida zole 500 mg tablet TAKE 1 TABLET BY MOUTH EVERY 12 HOURS FOR 7 DAYS 04/06 completed Not Available Not Available Not Available sulfameth oxazole 800 mg-trimet hoprim 160 mg tablet TAKE 1 TABLET BY MOUTH EVERY 12 HOURS FOR 7 DAYS 02/27 completed Not Available Not Available Not Available hydrocodo ne 10 mg-acetam inophen 325 mg tablet TAKE 1 TABLET BY MOUTH EVERY 6 HOURS NEEDED FOR PAIN active Not Available Not Available No t Available omeprazol e 40 mg capsule,d elayed release TAKE 1 CAPSULE BY MOUTH DAILY active Not Available Not Available No t Available levothyro xine 75 mcg tablet TAKE 1 TABLET BY MOUTH DAILY active Not Available Not Available No t Available nystatin- triamcino lone 100,000 unit/gram -0.1 % topical ointment APPLY TOPICALL Y TO THE AFFECTED AREA TWICE DAILY FOR 7 DAYS 04/06 completed Not Available Not Available Not Available amoxicill in 875 mg tablet TAKE 1 TABLET BY MOUTH EVERY 12 HOURS 02/27 completed Not Available Not Available Not Available Metrogel Vaginal 0.75 % (37.5 mg/5 gram) insert 1 applicat orful by vaginal route every day at bedtime 02/11 completed Prescrib ed Elsewher e: No Locat ion: Andrea [facility] odify By: humphrey anastacia Dianao unter DateTime : 02/08/20 01:15:00 PM Not Available Not Available Not Available methocarb didi 750 mg tablet TAKE 1 TABLET BY MOUTH THREE TIMES DAILY active Not Available Not Available No t Available Robaxin 500 mg tablet take 2 tablet by oral route 4 times every day 04/02 completed Prescrib ed Elsewher e: Yes [facility] By: dinah george DateTime : 02/12/20 16 02:15:00 PM Not Available Not Available Not Available dexametha sone 4 mg tablet active Not Available Not Available Not Available hydroxyzi ne HCl 25 mg tablet TAKE 1 TABLET BY MOUTH EVERY DAY AT BEDTIME 02/27 completed Not Available Not Available Not Available ibuprofen 600 mg tablet TAKE 1 TABLET BY MOUTH EVERY 6 TO 8 HOURS NEEDED 02/27 completed Not Available Not Available Not Available estradiol 0.01% (0.1 mg/gram) vaginal cream INSERT 1 GRAM VAGINALL Y 2 TIMES EVERY WEEK AT BEDTIME active Not Available Not Available No t Available ondansetr on 4 mg disintegr ating tablet DISSOLVE 1 TABLET ON THE TONGUE EVERY 8 HOURS NEEDED FOR NAUSEA OR VOMITING active Not Available Not Available No t Available fluticaso ne propionat e 50 mcg/actua tion nasal spray,katrina pension SHAKE LIQUID AND USE 1 SPRAY IN EACH NOSTRIL TWICE DAILY active Not Available Not Available No t Available Ambien 5 mg tablet take 2 tablet by oral route every day at bedtime 02/07 completed Prescrib ed Elsewher e: Yes [facility] By: cary Rawls DateTime : 04/11/20 13 01:45:00 PM Not Available Not Available Not Available amoxicill in 875 mg-potass ium clavulana te 125 mg tablet TAKE 1 TABLET BY MOUTH TWICE DAILY 02/27 completed Not Available Not Available Not Available divalproe x ER 250 mg tablet,ex tended release 24 hr take 2 tablet by oral route every day 02/07 completed Prescrib ed Elsewher e: Yes [facility]oca [facility]ion[facility] By: cary hester DateTime : 02/12/20 16 02:15:00 PM Not Available Not Available Not Available duloxetin e 30 mg capsule,d elayed release TAKE 1 CAPSULE BY MOUTH DAILY 10/27 completed Not Available Not Available Not Available Fosamax 02/27 completed Not Available Not Available Not Available levothyro xine 02/27 completed Not Available Not Available Not Available omeprazol e 02/27 completed Not Available Not Available Not Available methocarb didi 02/27 completed Not Available Not Available Not Available divalproe x 12/29 completed Not Available Not Available Not Available testoster one 50 mg/5 gram (1 %) transderm al gel apply by topical route every day (1 tube = 50 mg) 02/07 completed Prescrib ed Elsewher e: Yes Loca tion: [facility] odify By: cary george DateTime : 10/27/20 18 01:15:00 PM Not Available Not Available Not Available Abilify 9.75 mg/1.3 mL intramusc ular solution 04/11 completed Prescrib ed Elsewher e: Yes Loca tion: [facility] odify By: estela sales DateTime : 04/06/20 13 02:22:06 PM Not Available Not Available Not Available lidocaine 5 % topical ointment APPLY VERY SMALL AMOUNT TO AFFECTED AREA(S) BY TOPICAL ROUTE 1-3 TIMES DAILY NEEDED 02/27 completed Not Available Not Available Not Available Linzess 145 mcg capsule TAKE 1 CAPSULE BY MOUTH DAILY active Not Available Not Available No t Available naloxone 4 mg/actuat ion nasal spray 02/27 completed Not Available Not Available Not Available fluticaso ne 0.05 % lotion-em ollient combo no.65 cream, topical kit 02/27 completed Not Available Not Available Not Available Vitals Date Recorded Body height Body mass index (BMI) Body weight Systolic blood pressure Diastolic blood pressure Provider Name and Address Organization Details Last Updated DateTime 12/29/2021 165.1 cm 24 kg/m2 53560.3 g 128 mm[Hg] 85 mm[Hg] Jessica Salomon [facility] 2 14:26:08 Date Recorded Body height Body mass index (BMI) Body weight Systolic blood pressure Diastolic blood pressure Provider Name and Address Organization Details Last Updated DateTime 10/27/2023 165.1 cm 23.8 kg/m2 50761.71 g 130 mm[Hg] 84 mm[Hg] Faiza Murphy [facility] 3 11:24:02 Date Recorded Body height Body mass index (BMI) Body weight Systolic blood pressure Diastolic blood pressure Provider Name and Address Organization Details Last Updated DateTime 03/16/2024 165.1 cm 23.8 kg/m2 05255.71 g 146 mm[Hg] 96 mm[Hg] Petra Jolley [facility] 4 15:29:13 Date Recorded Body height Body mass index (BMI) Body weight Systolic blood pressure Diastolic blood pressure Provider Name and Address Organization Details Last Updated DateTime 04/06/2024 165.1 cm 23.5 kg/m2 64038.52 g 132 mm[Hg] 86 mm[Hg] Odalis Hollanden [facility] 4 15:35:14 Date Recorded Body height Body mass index (BMI) Body weight Systolic blood pressure Diastolic blood pressure Systolic blood pressure Diastolic blood pressure Provider Name and Address Organization Details Last Updated DateTime 4 165.1 cm 23.2 kg/m2 71598.7 8 g 151 mm[Hg] 96 mm[Hg] 130 mm[Hg] 80 mm[Hg] Josi Del Castillohiro [facility] 4 14:25:26 Social History Question Answer Notes LastModified by Organizat ion Details LastModified Time Tobacco Smoking Status Never Smoker Jessica jiang, [facility] 04/02/2021 10:28:25 What Is Your Level Of Alcohol Consumption? None Information not available 04/02/2021 Are You Blind Or Do You Have Difficulty Seeing? No Information n ot available 04/06/2024 In The 14 Days Before Symptom Onset, Have You Had Close Contact With A Laboratory-confirm ed COVID-19 While That Case Was Ill? No Information n ot available 03/15/2024 In The 14 Days Before Symptom Onset, Have You Had Close Contact With A Person Who Is Under Investigation For COVID-19 While That Person Was Ill? No [email or web address] Information not available 03/15/2024 Have You Been To An Area Known To Be High Risk For COVID-19? No Information not available 03/15/2024 Are You Deaf Or Do You Have Serious Difficulty Hearing? No [email or web address] Information not available 04/06/2024 Do You Use Your Seat Belt Or Car Seat Routinely? Yes [email or web address] Information not available 04/06/2024 Do You Have Smoke And Carbon Monoxide Detectors In Your Home? Yes [email or web address] Information not available 04/06/2024 Do You Use Any Illicit Or Recreational Drugs? No Information not available 04/02/2021 Do You Use Sunscreen Routinely? Yes [email or web address] Information not available 04/06/2024 Sex: Unknown Functional Status Question Answer Note LastModified by Organizat ion Details LastModified Time Do you have difficulty walking or climbing stairs? No Information not available 04/06/2024 Are you able to walk? YESWOREST [email or web address] Information not available 04/06/2024 Are you able to care for yourself? Yes [email or web address] Information not available 04/06/2024 Do you have difficulty dressing or bathing? No Information not available 04/06/2024 Mental Status None recorded. Family History Relationship Description Onset Age of this Age Resolved Age Notes LastModified by Organization Details LastModified Time Mother Malignant tumor of ovary [email or web address] Not available 2023 17:51:21 Mother Malignant tumor of breast [email or web address] Not available 2023 17:51:29 Notes:Mother: Ovarian cancer , Cancer, breast Medical History Condition Response Other Y Blood Transfusion N Dermatologic Disorders N Gestational Diabetes N Anxiety Disorder N Autoimmune disease N Arthritis N Polyps N Infertility N Acid Reflux (GERD) N Cancer N Varicosities N Stroke N Neurologic/Epilepsy N Fibromyalgia N Headaches N Kidney Disease N Heart Problems N Kidney or Bladder Problems N Eating Disorder N Art (IVF or FET) N Hepatitis/Liver Disease N No Past Medical History N Urinary Tract Infection N Asthma N Trauma/Violence N Thrombophilias N Allergies (Food, seasonal, environmental ) N Breast Cancer N Drug/Latex Allergies/Reactions N Lung Disease N Defects or Inherited Disease N Breast Problem N Hematologic disorders N Anesthesia Complications N History of STI N Deep Vein Thrombosis N Polycystic ovary syndrome N History of abnormal pap N Endometriosis N High Cholesterol Y Thyroid Problems Y GI Problems Y Anemia N Psychiatric Illness N Ovarian Cancer N Diabetes N Pulmonary (TB, Asthma) N Eczema N Abuse/Domestic Violence N Depression/ depression N Heart Disease N Pre-Eclampsia N Hypertension N Osteoporosis N Gynecological History Statement/Question Response Abnormal Pap Y Date of Last Mammogram Date of LMP On BCP's at Conception? N STIs/STDs N HPV Vaccine N Current Control Method Tubal Ligat ion Age at First Child 22 Date of Last Colonoscopy Sexually Active? N Date of DEXA bone scan Age of first menstrual cycle 16 Date of Last Pap Smear 03/16/2024 Sexual Problems? N Obstetrics History GPAL:G 3 P 3 0 0 3 Type Value Full Term 3 Living 3 Total 3 Past Encounters Encounter ID Performer Location Encounter Start Date Encounter Closed Date Diagnosis/Indication Diagnosis SNOMED-CT Code Diagnosis ICD10 Code Diagnosis Note [id number] Waleska Garcia MD [place] [address],[place] [address] 04/02/2021 10:16:24 04/02/2021 11:42:42 Mass of left breast 4813280800 8427501 N63.20 Atrophic vaginitis 23488 000 N95.2 [id number] Waleska Garcia MD [place] [address],[place] [address] 12/29/2021 14:10:49 12/29/2021 15:27:47 Gynecologic examination 33692206 Z01.419 Atrophic vaginitis 95244 000 N95.2 [id number] YENNI Fish [place] [address],[place] [address] 10/27/2023 10:57:21 10/27/2023 11:55:56 Lesion of vulva 244598910 N90.89 multiple HSV appearing lesionsHSV and cx sentDiscus sed HSV with patientval trex/lidoc adilene rx sent - r/b/a reviewedwi ll update patient with results when availableR TC if symptoms persist past valtrex course Time spent in visit is a total of 35 mins with at least 50% of visit consisting of counseling and review of plan of care. [id number] YENNI Fish [place] [address],[place] [address] 03/16/2024 15:26:05 03/16/2024 18:04:43 Gynecologic examination 52137315 Z01.419 WWEpap updateddec lined STI screenmamm mingo UTDcolonos copy UTDdexa UTD/PCProu lori labs UTD/PCPBP precaution s reviewed, encouraged PCP f/uTake Calcium with Vitamin D daily.Do monthly self breast exams.It is advised to get annual flu shot in the fall and she could obtain at [facility] or [facility]3]. If you haven't received the Tdap vaccine in the last 10 years you should obtain one as well.Have mammogram yearly, bone density every 2-3 years and colonoscop y every 5-10 years depending on findings and history.En willis in regular exercise. Avoid tobacco and illicit drugs. This lifestyle behavior pattern will lead to less health conditions and longer life span. If BMI greater than 25dietary consult advised.Qu estions have been answered. Patient appears to understand instructio ns, but if you have any further questions call or respond to this email Vulval irritation 156293 003 N90.89 vaginitis panel sentcx sentvulvar care guidelines discussedr ecommend f/u in 1 month, if irritation persist vulvar biopsy [id number] Luc Guillaume MD [place] [address],[place] [address] 04/06/2024 15:27:26 04/06/2024 22:15:06 [id number] Leticia Tamayo HANNA [place] [address],[place] [address] 06/15/2024 13:57:04 06/15/2024 14:28:58 Vaginal dryness 65139008 N89.8 rx sent for estradiol cream, apply twice per week at bedtime / r/b/a reviewedve g based moisturize r routine discussedq uestions answeredRT C for WWE or sooner if needed Time spent in visit is a total of 18 mins with at least 50% of visit consisting of counseling and review of plan of care. Health Concerns Section Related Observation LastModified by Organization Detai ls LastModified Time None Recorded Concern Status LastModified by Organization Details LastModified Time None Recorded Advance Directives Directive None Recorded Payers Encounter Date Sequence Insurance Name Policy Number Policy Mario Covered Member ID Mario Member ID Guarantor Name 12/29/2021 1 [place] Aida Gutierrez Short [id number] Aida Gutierrez Short 10/27/2023 1 [place] Aida Gutierrez Short [id number] Aida Gutierrez Short 10/27/2023 2 [place] [employer] [facility] [employer] Aida Gutierrez Short [id number] Aida Gutierrez Short 03/16/2024 1 [place] Aida Gutierrez Short [id number] Aida Gutierrez Short 03/16/2024 2 [place] [employer] [facility] [place] [employer] Aida Gutierrez Short [id number] Aida Gutiererz Short 04/06/2024 1 [place] Aida Gutierrez Short [id number] Aida Gutierrez Short 04/06/2024 2 [place] [employer] [facility] [place] [employer] Aida Gutierrez Short [id number] Aida Gutierrez Short 06/15/2024 1 [place] Aida Gutierrez Short [id number] Aida Gutierrez Short 06/15/2024 2 [place] [employer] [facility] [place] [employer] Aida Gutierrez Short [id number] Aida Gutierrez Short Notes Date Note Type Note Provider Name and Address Organization Details Recorded Time 2 text/html Patient is a 61yo who presents for an annual exam. Had HPV about 10 years ago. needs refill on estrace cream. also using testosterone for libido and requesting refill. last pap- 10/2019 NILM mammo-05/2021 colonoscopy-3 years normal dexa-this year? menopause-yes, no bleeding sexually active-y seatbelts-y exercise-y depression-denies domestic violence-denies tobacco-y concerns- Waleska Garcia MD [address], [place], [address], [place] [facility] 12/29/2021 15:16:20 3 text/html 63yo postmenopausal femalepresents for evaluation of vulvar lesionlocated on perineumnoticed symptoms about 1 week agoraw, feels like tiny cutshurts when urine touchesclothing/sitting is uncomfortableSA with steady male partner - partner has a hx of HSV and takes daily valtrex YENNI Fish [address], [place], [address], [facility] 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 Post-MenopausalReported bypatient.Menopausal Symptoms:no menopausal symptoms; normal vaginal lubrication Vaginal Bleeding:history of menopause having occurred; no history of post menopausal bleeding Urinary Symptoms:no hematuria; no incontinence; no nocturia; no urinary frequency Vulva:no genital lesion; no vulvar atrophy; vulvar itching/irritation Vagina:normal vaginal discharge; no vaginal atrophy Breast:no breast lump; no nipple discharge; no breast pain Sexual Complaints:no sexual complaints Psychological Symptoms:no depression; no anxiety Preventive Measures:encourage regular mammograms starting age 40; encourage self breast examination; encourage regular exercise; encourage no tobacco use; mammogram performed within the past year; history of recent colonoscopyNotes:63yo [id number] last pap 12/2021 : normalcolonoscopy UTD : 2019dexa: done this year through PCP, osteopeniamammogram UTD 01/2024, rotating mammogram and MRI Q 6 months - follows with breast specialistfam hx of mother with BC and ovarian cancerpt is considering genetic testing but has not had done yet recently irritated vulva while shaving and has been having irritation/itching for the past few days [address] [place], [address], [facility] 03/16/2024 17:58:47 4 text/html 64yopresents to discuss restarting vaginal estrogen creamstopped using about 3 months agosince then has noticed dryness with IC previously seen 03/16/2024 for vulvar irritation/itching. Those symptoms have since resolved [address], [place], [address], [facility] 06/15/2024 14:27:29 OBGyn Episode Ob Episode Information Episode Created Date Number of Fetuses Patient Bloodtype Patient rh Status Prepregnancy Weight lbs Domestic Partner Domestic Partner Phone Father Name Oven Builder Status 04/02/20 21 1 CLOSED Fetus Data First Name Last Name Admitted to NICU Weight (g) Sex Living Outcome Pediatric Complications Fetus ID Race Codes Race Delivery Type F [id number] Vaginal Delivery Jairo Calculation Initial Jairo Date Initial Exam Date Initial Exam Provider Initial Ultrasound Date Last Menstrual Period Date Ultra Sound Weeks Gestation 0 Eighteen To Twenty Week Jairo Update Ultra Sound Date Fundal Height At Umbil Quickening Date Ultra Sound Latest Weeks Gestation Final Jairo Confirmed By Final Jairo Confirmed Date Final Jairo Date Ultra Sound Latest Days Gestation 0 0 Menstrual History Last Menstrual Date Menses Monthly On Bcp Conception Prior Menses Frequency Hcg Plus Date Menarche Onset Age Delivery Information Delivery Date Delivery Type Labor Anesthesia Weeks Gestation Incision Type Labor Labor Length Hrs Delivered By Post Complications Tubal Sterilization Discharge Date Comments 1 Discharge Information Feeding Method Contraceptive Method Maternal HG B and HCT Levels Ob Episode Information Episode Created Date Number of Fetuses Patient Bloodtype Patient rh Status Prepregnancy Weight lbs Domestic Partner Domestic Partner Phone Father Name Oven Builder Status 04/02/20 21 1 CLOSED Fetus Data First Name Last Name Admitted to NICU Weight (g) Sex Living Outcome Pediatric Complications Fetus ID Race Codes Race Delivery Type M [id number] Vaginal Delivery Jairo Calculation Initial Jairo Date Initial Exam Date Initial Exam Provider Initial Ultrasound Date Last Menstrual Period Date Ultra Sound Weeks Gestation 0 Eighteen To Twenty Week Jairo Update Ultra Sound Date Fundal Height At Umbil Quickening Date Ultra Sound Latest Weeks Gestation Final Jairo Confirmed By Final Jairo Confirmed Date Final Jairo Date Ultra Sound Latest Days Gestation 0 0 Menstrual History Last Menstrual Date Menses Monthly On Bcp Conception Prior Menses Frequency Hcg Plus Date Menarche Onset Age Delivery Information Delivery Date Delivery Type Labor Anesthesia Weeks Gestation Incision Type Labor Labor Length Hrs Delivered By Post Complications Tubal Sterilization Discharge Date Comments 0 Discharge Information Feeding Method Contraceptive Method Maternal HG B and HCT Levels Ob Episode Information Episode Created Date Number of Fetuses Patient Bloodtype Patient rh Status Prepregnancy Weight lbs Domestic Partner Domestic Partner Phone Father Name Oven Builder Status 04/02/20 21 1 CLOSED Fetus Data First Name Last Name Admitted to NICU Weight (g) Sex Living Outcome Pediatric Complications Fetus ID Race Codes Race Delivery Type F [id number] Vaginal Delivery Jairo Calculation Initial Jairo Date Initial Exam Date Initial Exam Provider Initial Ultrasound Date Last Menstrual Period Date Ultra Sound Weeks Gestation 0 Eighteen To Twenty Week Jairo Update Ultra Sound Date Fundal Height At Umbil Quickening Date Ultra Sound Latest Weeks Gestation Final Jairo Confirmed By Final Jairo Confirmed Date Final Jairo Date Ultra Sound Latest Days Gestation 0 0 Menstrual History Last Menstrual Date Menses Monthly On Bcp Conception Prior Menses Frequency Hcg Plus Date Menarche Onset Age Delivery Information Delivery Date Delivery Type Labor Anesthesia Weeks Gestation Incision Type Labor Labor Length Hrs Delivered By Post Complications Tubal Sterilization Discharge Date Comments 4 Discharge Information Feeding Method Contraceptive Method Maternal HG B and HCT Levels
--- OUTSIDE RECORDS SUMMARY | 2025-02-12 18:25 | XMS_ITS | Encounter Summary ---
Author Organization [facility] Healthcare Address [address] [place] [address] Care Team Providers Care Shucker Name Role Phone Unavailable Primary Care Provider Unavailabl e Reason for Visit * Diagnostic Imaging (Routine) - Closed Specialty Diagnoses / Procedures Referred By Conthardeep t Referred To Contact Procedures Breast Imaging Screening Outside Reference Suzi Amezquita NP [address] [facility] [id number] [place] [address] Phone: tel: fax: Referral ID Status Reason Start Date Expiration Date Visits Re quested Visits Authorized [id number] Closed 06/17/2023 07/16/2024 1 1 Encounter Details Date Type Department Care Team ([facility] st Contact Info) Description 08/06/2018 Hospital Encounter [facility] [address] [place] [id number] Social History Tobacco Use Types Packs/Day Years Used Date Smoking Tobacco: Former Cigarettes 0.3 10 0 06/2012 - 06/2022 AUDIT-C Answer Date Recorded Q1: How often do you have a drink containing alc ohol? Monthly or less 07/20/2023 Q2: How many drinks containi ng alcohol do you have on a typical day when you are drinking? 1 or 2 07/20/2023 Q3: How often do you have si x or more drinks on one occasion? 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 Monthly or less 07/20/2023 1:29 PM Bianca Quintero CMA Q2: How many drinks containing alcohol do you have on a typical day when you are drinking? 1 or 2 07/20/2023 1:29 PM Bianca Quintero CMA Q3: How often do you have six or more drinks on one occasion? Less than monthly 07/20/2023 1:29 PM Bianca Quintero CMA documented as of this encounter Plan of Treatment Not on file documented as of this encounter Procedures Procedure Name Priority Date/Time Associated Diagnosis Comments BREAST IMAGING MG SCREENING OUTSIDE REFERENCE Routine 08/06/2018 12:00 AM CDT documented in this encounter Results * Breast Imaging Screening Outside Reference (08/06/2018 12:00 AM CDT) Impressions RAD_MAMMO_[facility] - 06/17/2023 9:36 AM CDT These images are for Reference purposes only and have not been reviewed by [facility] Radiology. There will be no report generated by a [facility] Radiologist. Narrative RAD_MAMMO_[facility] - 06/17/2023 9:36 AM CDT EXAMINATION: Images For Reference Purposes Only us Suzi Amezquita NP IMG MAMMO PROCEDURES Final Result [facility]_MAMMO_[facility] documented in this encounter Visit Diagnoses Not on filedocumented in this encounter
--- OUTSIDE RECORDS SUMMARY | 2025-02-12 18:25 | XMS_ITS | Clinical Summary ---
Author Organization [facility] Address [facility] [place] [address] Care Team Providers Care Wood Treating Inspector Name Role Phone Ariel Cross MD Primary Care Provider [phone] Waleska Garcia MD Unavailable [phone] Allergies No known active allergies Medications Linzess 145 mcg capsule Take 1 capsule (145 mcg total) by mouth daily Active levothyroxine (SYNTHROID) 75 mcg tablet Take 1 tablet (75 mcg total) by mouth daily 1 Active ondansetron ODT (ZOFRAN-ODT) 4 mg disintegrating tablet DISSOLVE 1 TABLET ON THE TONGUE EVERY 8 HOURS NEEDED FOR NAUSEA OR VOMITING Active omeprazole (PriLOSEC) 40 mg capsule Take 1 capsule (40 mg total) by mouth daily 1 Active HYDROcodone-acetami nophen (NORCO) 10-325 mg per tablet Take by mouth every 6 (six) hours as needed 1 Active ALPRAZolam (XANAX) 1 mg tablet Take by mouth 3 (three) times a day as needed 1 Active Active Problems Problem Noted Date Diagnosed Date 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 Medical History Medical History Date Comments Thyroid disease Osteoporosis Family History Medical History Relation Name Comments Breast cancer Mother Ovarian cancer Mother Breast cancer Mother's Sister Relation Name Status Comments Mother Mother's Sister Social History Tobacco Use Types Packs/Day Years Used Date Smoking Tobacco: Former Cigarettes 0.3 10 0 06/2012 - 06/2022 Tobacco Cessation:Counseling Given: Not Answered AUDIT-C Answer Date Recorded Q1: How often [...] on file 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 Gender Identity Not on file Sexual Orientation Not on file Obstetrics History Last Filed Vital Signs Vital Sign Reading Time Taken Comments Blood Pressure - - Pulse - - Temperature - - Respiratory Rate - - Oxygen Saturation - - Inhaled Oxygen Concentration - - Weight 63.5 kg (139 lb 15.9 oz) 024 11:24 AM CDT Height 165.1 cm (5' 5 ) 08/22/2024 11:2 4 AM CDT Body Mass Index 23.3 08/22/2024 11:24 AM CDT Plan of Treatment Health Maintenance Due Date Last Done Comments Cervical Cancer Screening 1961 Colon Cancer Screening-Colonoscopy 1961 Depression Screening 1961 Hepatitis C Screening 1961 DTaP/Tdap/Td Vaccine (1 - Tdap) 1972 Hepatitis B Screening 1979 Regular Well Visit/Exam 18-64 1979 Zoster Vaccine (1 of 2) 2011 Covid-19 Vaccine (3 - 2023-2 5 season) 2024 05/29/2021, 04/08/2021 Influenza Vaccine (#1) 2024 Breast Cancer Screening-Mammogram 08/22/2025 08/22/2024, 05/12/2023 Pneumococcal vaccine <65 Aged Out No longer eligible based on patient's age to complete this topic Procedures Procedure Name Priority Date/Time Associated Diagnosis Comments DIAGNOSTIC MAMMOGRAM BILATERAL W CONRAD Schedule Routine, Read Routine (OP Routine) 08/22/2024 12:23 PM CDT Family history of breast cancer Abscess of the breast and nipple from Last 3 Months or Most Recently Relevant to Health Maintenance Results * Diagnostic Mammogram Bilateral W Conrad (08/22/2024 12:23 PM CDT) Anatomical Region Laterality Modality Breast Bilateral Mammography 08/22/2024 12:4 8 PM CDT Impressions 08/22/2024 12:48 PM CDT Probably benign left breast hypoechoic areas, unchanged. Short-term follow-up is recommended in 12 months. OVERALL FINAL ASSESSMENT: BI-RADS Category 3: Probably Benign. RECOMMENDATION: Recommend follow-up diagnostic breast imaging in 12 months with left breast ultrasound and bilateral breast mammogram. Electronically signed by: Britni Pitts M.D. Narrative 08/22/2024 12:48 PM CDT EXAMINATION: DIAGNOSTIC MAMMOGRAM BILATERAL W CONRAD, US BREAST LEFT LIMITED HISTORY: 64-year-old female presents for annual mammogram and short-term follow-up left breast ultrasound. COMPARISON: Priors dating back to 2019 TECHNIQUE: Full field digital mammographic views of BOTH breasts were performed, including computer aided detection (CAD) digital breast tomosynthesis (DBT). Directed ultrasound evaluation of the LEFT breast was performed by the lamp tester and inspector. BREAST PARENCHYMAL COMPOSITION: The breasts are heterogenously dense, which may obscure small masses. MAMMOGRAM FINDINGS: There is no suspicious abnormality in either breast. No suspicious masses, microcalcifications or architectural distortion visualized. There is no significant change from prior exams. SONOGRAM FINDINGS: 4:00 5 cm from the nipple, 12:00 periareolar, there is a 0.3 x 0.2 cm hypoechoic mass, unchanged. 4:00 5 cm from the nipple, there is a hypoechoic area, measuring 0.9 x 0.6 cm (remeasured), also unchanged. Procedure Note Britni Pitts MD - 08/22/2024 EXAMINATION: DIAGNOSTIC MAMMOGRAM BILATERAL W CONRAD, US BREAST LEFT LIMITED HISTORY: 64-year-old female presents for annual mammogram and short-term follow-up left breast ultrasound. COMPARISON: Priors dating back to 2019 TECHNIQUE: Full field digital mammographic views of BOTH breasts were performed, including computer aided detection (CAD) digital breast tomosynthesis (DBT). Directed ultrasound evaluation of the LEFT breast was performed by the lamp tester and inspector. BREAST PARENCHYMAL COMPOSITION: The breasts are heterogenously dense, which may obscure small masses. MAMMOGRAM FINDINGS: There is no suspicious abnormality in either breast. No suspicious masses, microcalcifications or architectural distortion visualized. There is no significant change from prior exams. SONOGRAM FINDINGS: 4:00 5 cm from the nipple, 12:00 periareolar, there is a 0.3 x 0.2 cm hypoechoic mass, unchanged. 4:00 5 cm from the nipple, there is a hypoechoic area, measuring 0.9 x 0.6 cm (remeasured), also unchanged. IMPRESSION: Probably benign left breast hypoechoic areas, unchanged. Short-term follow-up is recommended in 12 months. OVERALL FINAL ASSESSMENT: BI-RADS Category 3: Probably Benign. RECOMMENDATION: Recommend follow-up diagnostic breast imaging in 12 months with left breast ultrasound and bilateral breast mammogram. Electronically signed by: Britni Pitts M.D. Suzi Amezquita NP IMG MAMMO PROCEDURES Final Result from Last 3 Months or Most Recently Relevant to Health Maintenance Insurance MEDICARE [facility] MEDICARE IDPA Care Teams Wood Treating Inspector Relationship Specialty Start Date End Date Ariel Cross MD PCP - General Family Practice 06/10/23 Waleska Garcia MD Referring Physician Obstetrics and Gynecology 06/10/23
--- OUTSIDE RECORDS SUMMARY | 2025-02-12 18:25 | XMS_ITS | Encounter Summary ---
Author Organization [facility] Healthcare Address [address] [place] [address] Care Team Providers Care Unit Support Representative Name Role Phone Unavailable Primary Care Provider Unavailabl e Reason for Visit * Diagnostic Imaging (Routine) - Closed Specialty Diagnoses / Procedures Referred By Contac t Referred To Contact Procedures Breast Imaging Screening Outside Reference Suzi Amezquita NP [address] [facility] [phone] [place] [address] Phone: tel: fax: Referral ID Status Reason Start Date Expiration Date Visits Re quested Visits Authorized [id number] Closed 06/17/2023 07/16/2024 1 1 Encounter Details Date Type Department Care Team ([facility] st Contact Info) Description 09/19/2019 Hospital Encounter [facility] [address] [place] [address] Social History Tobacco Use Types Packs/Day [...] on file 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 Monthly or less 07/20/2023 1:29 PM Bianca Qiuntero CMA Q2: How many drinks containing alcohol [...] BREAST IMAGING MG SCREENING OUTSIDE REFERENCE Routine 09/19/2019 12:00 AM CDT documented in this encounter Results * Breast Imaging Screening Outside Reference (09/19/2019 12:00 AM CDT) Impressions RAD_MAMMO_[facility]J - 06/17/2023 9:36 AM CDT These images are for Reference purposes only and have not been reviewed by [facility] Radiology. There will be no report generated by a [facility] Radiologist. Narrative RAD_MAMMO_[facility] - 06/17/2023 9:36 AM CDT EXAMINATION: Images For Reference Purposes Only us Suzi Amezquita NP IMG MAMMO PROCEDURES Final Result RAD_MAMMO_[facility] documented in this encounter Visit Diagnoses Not on filedocumented in this encounter
--- OUTSIDE RECORDS SUMMARY | 2025-02-12 18:25 | XMS_ITS | Encounter Summary ---
Author Organization [facility] Healthcare Address [address] [place] [address] Care Team Providers Care Cement Rubber Name Role Phone Unavailable Primary Care Provider Unavailabl e Reason for Visit * Diagnostic Imaging (Routine) - Closed Specialty Diagnoses / Procedures Referred By Conthardeep t Referred To Contact Procedures Breast Imaging Screening Outside Reference Suzi Amezquita NP [address] [facility] [phone] [place] [address] Phone: tel: fax: Referral ID Status Reason Start Date Expiration Date Visits Re quested Visits Authorized [id number] Closed 06/17/2023 07/16/2024 1 1 Encounter Details Date Type Department Care Team ([facility] st Contact Info) Description 07/01/2017 Hospital Encounter [facility] Radiology [facility] [address] [place] [address] Social History Tobacco Use Types Packs/Day [...] on file 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 There will be no report generated by a [facility] Radiologist. Narrative RAD_MAMMO_[facility] - 06/17/2023 9:37 AM CDT EXAMINATION: Images For Reference Purposes Only us Suzi Amezquita NP IMG MAMMO PROCEDURES Final Result RAD_MAMMO_[facility] documented in this encounter Visit Diagnoses Not on filedocumented in this encounter
--- OUTSIDE RECORDS SUMMARY | 2025-02-12 18:25 | XMS_ITS | Referral Summary ---
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 BREAST PARENCHYMAL COMPOSITION: The breasts are heterogenously [...] the LEFT breast was performed by the fuselage framer. BREAST PARENCHYMAL COMPOSITION: The breasts are heterogenously [...] Recently Relevant to Health Maintenance Insurance MEDICARE [facility] MEDICARE ID[place] Care Teams Medicaid Service Coordinator Relationship Specialty Start Date End Date Ariel Cross MD PCP - General Family Practice 06/10/23 Waleska Garcia MD Referring Physician Obstetrics and Gynecology 06/10/23
--- OUTSIDE RECORDS SUMMARY | 2025-02-12 18:25 | XMS_ITS | Clinical Summary ---
Author Organization [facility] Address [facility] [place] [address] Care Team Providers Care Box Brander Name Role Phone Lokesh Carter MD Primary Care Provider Unava ilable Medications traZODone 100 MG tablet Take 100 mg by mouth nightly at bedtime. 1 Active omeprazole 40 MG capsule Take 40 mg by mouth daily. 1 Active olopatadine 0.2 % Solution INT 1 DROP INTO OU QHS PRN 0 Active methocarbamol 750 MG Tab 1 Active levothyroxine 75 MCG tablet Take 75 mcg by mouth daily. 1 Active hydrOXYzine 25 MG tablet Take 25 mg by mouth nightly at bedtime. at bedtime 1 Active HYDROcodone-gwendolyn taminophen 10-325 MG tablet 1 Active fluticasone propionate 50 MCG/ACT nasal spray INSTILL 1 SPRAY IN EACH NOSTRIL TWICE DAILY 1 Active famotidine 40 MG tablet Take 40 mg by mouth daily. 0 Active estradiol 0.1 MG/GM vaginal cream INSERT 0.5 GRAM VAGINALLY 3 TIMES EVERY WEEK 1 Active divalproex ER 250 MG 24 hr tablet TAKE 2 TABLETS BY MOUTH EVERY EVENING FOR 90 DAY 1 Active atorvastatin 20 MG tablet Take 20 mg by mouth daily. 1 Active alendronate 70 MG tablet Take 70 mg by mouth once a week. 1 Active ALPRAZolam 1 MG tablet Take 1 mg by mouth 3 (three) times daily. 1 Active Social History Tobacco Use Types Packs/Day Years Used Date Smoking Tobacco: Never Assessed Comments Unknown Sex and Gender Information Value Date Recorded Sex Assigned at Not on file Legal Sex Female 8:01 PM CDT Gender Identity Not on file Sexual Orientation Not on file Plan of Treatment Health Maintenance Due Date Last Done Comments Cervical Cancer Screening Pa p Smear (Age 30 to 64) Every 3 Years 1961 Colorectal Cancer Screening Colonoscopy (10 Years) 1961 Annual Physical 1964 Hepatitis C 1979 DTaP, Tdap and Td Vaccines ( 1 - Tdap) 1980 Cervical Cancer Screening Pa p with HPV Testing (Age 30 to 64) Every 5 Years 1991 Cervical Cancer Screening with HPV 1991 Mammogram Screening 2001 Zoster Vaccines (1 of 2) 2011 COVID-19 Vaccine ( - 2023-2 5 season) 2024 Influenza Adult (#1) 2024 RSV Immunization or 60+ Years (1 - 1-dose 75+ series) 2036 Meningococcal B Vaccine Aged Out No l onger eligible based on patient's age to complete this topic Meningococcal Vaccine Aged Out No miranda jenny eligible based on patient's age to complete this topic Pneumococcal Vaccine: Pediat rics (0 to 5 Years) and At-Risk Patients (6 to 64 Years) Aged Out No longer eligible b ased on patient's age to complete this topic RSV Immunizations Under 20 Months Aged Out No longer eligible based on patient's age to complete this topic Insurance MEDICARE Care Teams Box Brander Relationship Specialty Start Date End Date Lokesh Carter MD PCP - General INTERNAL MEDICINE 01/05/20
--- OUTSIDE RECORDS SUMMARY | 2025-02-12 18:25 | XMS_ITS | Clinical Summary ---
Author Organization [facility] Address [address] [address] Phone Care Team Providers Care String Studies Director Name Role Phone Ian Talavera DO Unavailable [phone] Sandeep Carrion Primary Care Provider [phone] Medications polyethylene glycol (MIRALAX) Powder Mix the entire bottle with 64 oz of a clear liquid. Use as directed by the office for colonoscopy prep. 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 Gender Identity Not on file Sexual Orientation Not on file Plan of Treatment Health Maintenance Due Date Last Done Comments Hepatitis C Virus (HCV) Screening 1961 TdaP Immunization 1961 Pap Smear 1982 Cervical Cancer Screening (CCS) 1991 HPV/Cotest 1991 Cologuard 2011 Immunochemical Fecal Occult Blood 2011 Mammogram 2011 Pneumococcal Immunization (5 0+ years) (1 of 1 - PCV) 2011 Zoster Immunization (1 of 2) 2011 Influenza Immunization (#1) 2024 SARS-COV-2 Immunization ( - season) 2024 Colonoscopy 03/12/2026 03/12/2016 Colorectal Cancer Screening 03/12/2026 Respiratory Syncytial Virus (RSV) Immunization (Adult) (1 - 1-dose 75+ series) 2036 03/12/2016 Hepatitis B Immunization Aged Out No longer eligible based on patient's age to complete this topic Meningococcal Immunization (ACWY) Aged Out No longer eligible based on patient's age to complete this topic Pneumococcal Immunization Combined Aged Out No longer eligible based on patient's age to complete this topic Rotavirus Immunization Aged Out No lo nger eligible based on patient's age to complete this topic Procedures Procedure Name Priority Date/Time Associated Diagnosis Comments COLONOSCOPY Routine 03/12/2016 from Last 3 Months or Most Recently Relevant to Health Maintenance Results * HM COLONOSCOPY (03/12/2016) Sandeep Carrion PROCEDURE/MINOR SURGICAL ORDERAB LES Final Result from Last 3 Months or Most Recently Relevant to Health Maintenance Insurance MEDICARE Care Teams String Studies Director Relationship Specialty Start Date End Date Sandeep Carrion [address] [place] [address] PCP - General Family Medicine 01/02/19 Ian Talavera DO Gastroenterology 03/23/16
--- OUTSIDE RECORDS SUMMARY | 2025-02-12 18:25 | XMS_ITS | Clinical Summary ---
Author Organization [facility] Address [address] [place] [address] Care Team Providers Care Graphotype Operator Name Role Phone Lokesh Carter MD Primary Care Provider [phone] Source Comments [facility],non-owned Affiliates and Associated Physician Practices is amultiple site organization consisting of ambulatory clinics and hospital sitesin [place], [place], [place] and [place]. This disclosure is being madepursuant to the Care Everywhere program and may not contain all information available regarding this patient. Last updated 18.[facility] Allergies No known active allergies Medications * Be aware that medications may not be up to date on this document. Alwaysverify current medications with the patient. Medication Sig Dispensed Refills Start Date End Date Status ALPRAZolam (XANAX PO) Act karla HYDROCODONE-ACETAMINO PHEN PO Active DIVALPROEX SODIUM PO Acti ve METHOCARBAMOL PO Active Alendronate Sodium (FOSAMAX PO) Active fluticasone propionate (FLONASE) 50 MCG/ACT nasal sprayIndications:Acut e maxillary sinusitis, recurrence not specified [place] 2 sprays into each nostril once daily 1 bottles 11/21/2018 Active Social History Tobacco Use Types Packs/Day Years Used Date Smoking Tobacco: Former Smokeless Tobacco: Never Tobacco Cessation:Counseling Given: Yes Sex and Gender Information Value Date Recorded Sex Assigned at Not on file Gender Identity Not on file Sexual Orientation Not on file Last Filed Vital Signs Vital Sign Reading Time Taken Comments Blood Pressure 114/76 11/21/2018 2:49 PM APPARATUS REPAIR MECHANIC Pulse 61 11/21/2018 2:49 PM APPARATUS REPAIR MECHANIC Temperature 36.8 C (98.2 F) 11/21/2018 2:49 PM APPARATUS REPAIR MECHANIC Respiratory Rate 16 04/26/2017 4:37 PM CDT Oxygen Saturation 98% 11/21/2018 2:49 PM APPARATUS REPAIR MECHANIC Inhaled Oxygen Concentration - - Weight 59 kg (130 lb) 11/21/2018 2:49 PM APPARATUS REPAIR MECHANIC Height 162.6 cm (5' 4 ) 11/21/2018 2:49 PM APPARATUS REPAIR MECHANIC Body Mass Index 22.31 11/21/2018 2:49 PM APPARATUS REPAIR MECHANIC Plan of Treatment Health Maintenance Due Date Last Done Comments COLOGUARD (AGES 45-75) - COL ON CA SCREENING 1961 COLON MONITORING 1961 COLONOSCOPY - COLON CA SCREENING 1961 CT COLONOGRAPHY - COLON CA SCREENING 1961 Colorectal Cancer Screening 1961 FIT - COLON CA SCREENING 1961 FLEX SIG - COLON CA SCREENING 1961 LIPID TESTING 1961 MAMMOGRAM 1961 MEDICARE AWV 12 MONTHS 1961 PAP SMEAR 1961 HIV SCREENING 1976 HEPATITIS C SCREENING 05/07/1979 DTAP/TDAP/TD VACCINES (1 - Tdap) 1980 PNEUMOCOCCAL VACCINE 50+ (1 of 1 - PCV) 2011 ZOSTER VACCINE (1 of 2) 2011 COVID-19 VACCINE ( - 2023-2 5 season) 2024 INFLUENZA VACCINE (#1) 2024 DEPRESSION SCREENING 11/22/2024 Respiratory Syncytial Virus (RSV) Vaccine Pt: or over 60 yrs (1 - 1-dose 75+ series) 2036 HEPATITIS B VACCINE Aged Out No longe r eligible based on patient's age to complete this topic HIB VACCINE Aged Out No longer eligi ble based on patient's age to complete this topic HPV VACCINE Aged Out No longer eligi ble based on patient's age to complete this topic MENINGOCOCCAL (Group B) VACC INE SHARED DECISION-MAKING Aged Out No longer eligibl e based on patient's age to complete this topic MENINGOCOCCAL GROUPS A/C/Y/W VACCINE Aged Out No longer eligible b ased on patient's age to complete this topic PNEUMOCOCCAL VACCINE Aged Out No long er eligible based on patient's age to complete this topic Care Teams Graphotype Operator Relationship Specialty Start Date End Date Lokesh Carter MD [address] [facility] [address] [place] [address] PCP - General 01/04/19
--- OUTSIDE RECORDS SUMMARY | 2025-02-12 18:25 | XMS_ITS | Encounter Summary ---
Author Organization [facility] Healthcare Address [address] [place] [address] Care Team Providers Care [employer] Team Member Name Role Phone Unavailable Primary Care Provider Unavailabl e Reason for Visit * Diagnostic Imaging (Routine) - Closed Specialty Diagnoses / Procedures Referred By Contac t Referred To Contact Procedures Breast Imaging Screening Outside Reference Suzi Amezquita NP [address] [facility] [phone] [place] [address] Phone: tel: fax: Referral ID Status Reason Start Date Expiration Date Visits Re quested Visits Authorized [id number] Closed 06/17/2023 07/16/2024 1 1 Encounter Details Date Type Department Care Team ([facility] st Contact Info) Description 11/06/2020 Hospital Encounter [facility]iology [facility] [address] [place] [address] Social History Tobacco Use Types Packs/Day [...] on file 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 There will be no report generated by a [facility] Radiologist. Narrative RAD_MAMMO_[facility] - 06/17/2023 9:36 AM CDT EXAMINATION: Images For Reference Purposes Only us Suzi Amezquita NP IMG MAMMO PROCEDURES Final Result RAD_MAMMO_[facility] documented in this encounter Visit Diagnoses Not on filedocumented in this encounter
== END 2025-02-12 16:08 | disposition home or self-care (01) ==
LOC: ANHLAB 16:09
PROVIDERS: PCP Family Medicine; Visit Provider Family Medicine
DX: R07.9 Chest pain, unspecified (principal); M50.30 Other cervical disc degeneration, unspecified cervical region; E03.9 Hypothyroidism, unspecified; E78.2 Mixed hyperlipidemia; R74.8 Abnormal levels of other serum enzymes; K21.9 Gastro-esophageal reflux disease without esophagitis; F31.81 Bipolar II disorder; G47.00 Insomnia, unspecified; G89.29 Other chronic pain; Z79.899 Other long term (current) drug therapy
CPT/HCPCS: 36415; 80053; 80061; 82306; 84443; 85027

== ENCOUNTER 2025-02-27 10:23 | Outpatient (CLI) | payer MEDICARE, MEDICAID, SELFPAY ==
--- NOTE | ~2025-02-27 | US_ITS ---
Limited Abdominal Sonogram: Real-time sonographic imaging of the right upper quadrant was performed. Clinical History: Fatty liver Findings: The liver appears echogenic with no evidence of mass lesion or bile duct dilatation. Liver measures 17.9 cm in length. Main portal vein demonstrates normal direction of flow. The gallbladder is well distended, and appears normal with no evidence of gallstone or wall thickening. The common bi le duct measures 2 mm. The visualized pancreas, aorta, and IVC are unremarkable. Impression: Diffuse fatty infiltration of the liver, with associated hepatomegaly. Reviewed, dictated and finalized at location M. Impression: Diffuse fatty infiltration of the liver, with associated hepatomegaly.
--- OUTSIDE RECORDS SUMMARY | 2025-02-27 09:01 | XMS_ITS | Clinical Summary ---
Author Organization [facility] Address [address] [address] Phone Care Team Providers Care Rehab Therapist Name Role Phone Ian Talavera DO Unavailable [phone] Sandeep Carrion Primary Care Provider [phone] Medications polyethylene glycol (MIRALAX) Powder Mix the entire bottle with 64 oz of a clear liquid. Use as directed by the office for colonoscopy prep. 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
--- OUTSIDE RECORDS SUMMARY | 2025-02-27 09:02 | XMS_ITS | Clinical Summary ---
Author Organization [facility] Address [facility] [place] [address] Care Team Providers Care Mines Inspector Name Role Phone Lokesh Carter MD Primary [...] Vaccine ( - 2023-2 5 season) 2024 RSV Immunization or 60+ Years (1 [...] complete this topic Insurance MEDICARE Care Teams Mines Inspector Relationship Specialty Start Date End Date Lokesh Carter MD PCP - General INTERNAL MEDICINE 01/05/20
--- OUTSIDE RECORDS SUMMARY | 2025-02-27 09:02 | XMS_ITS | Encounter Summary ---
Author Organization [facility] Healthcare Address [address] [place] [address] Care Team Providers Care Locomotive Pipe Fitter Name Role Phone Unavailable Primary Care Provider Unavailabl e Reason for Visit * Diagnostic Imaging (Routine) - Closed Specialty Diagnoses / Procedures Referred By Conthardeep t Referred To Contact Procedures Breast Imaging Screening Outside Reference Suzi Amezquita NP [address] [facility] [phone] [place] [address] Phone: tel: fax: Referral ID Status Reason Start Date Expiration Date Visits Re quested Visits Authorized [id number] Closed 06/17/2023 07/16/2024 1 1 Encounter Details Date Type Department Care Team ([facility] st Contact Info) Description 07/01/2017 Hospital Encounter [facility] [address] [place] [address] Social History Tobacco Use Types Packs/Day [...] on file 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 There will be no report generated by a [facility] Radiologist. Narrative RAD_MAMMO_[facility] - 06/17/2023 9:37 AM CDT EXAMINATION: Images For Reference Purposes Only us Suzi Amezquita NP IMG MAMMO PROCEDURES Final Result RAD_MAMMO_[facility] documented in this encounter Visit Diagnoses Not on filedocumented in this encounter
--- OUTSIDE RECORDS SUMMARY | 2025-02-27 09:02 | XMS_ITS | Encounter Summary ---
Author Organization [facility] Healthcare Address [address] [place] [address] Care Team Providers Care Saddle Lining Stitcher Name Role Phone Unavailable Primary Care Provider Unavailabl e Reason for Visit * Diagnostic Imaging (Routine) - Closed Specialty Diagnoses / Procedures Referred By Conthardeep t Referred To Contact Procedures Breast Imaging Screening Outside Reference Suzi Amezquita NP [address] [facility] [id number] [place] [address] Phone: tel: fax: Referral ID Status Reason Start Date Expiration Date Visits Re quested Visits Authorized [id number] Closed 06/17/2023 07/16/2024 1 1 Encounter Details Date Type Department Care Team ([facility] st Contact Info) Description 11/06/2020 Hospital Encounter [facility]iology [facility] [address] [place] [address] Social History Tobacco Use Types Packs/Day [...] on file 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 There will be no report generated by a [facility] Radiologist. Narrative RAD_MAMMO_[facility] - 06/17/2023 9:36 AM CDT EXAMINATION: Images For Reference Purposes Only us Suzi Amezquita NP IMG MAMMO PROCEDURES Final Result RAD_MAMMO_[facility] documented in this encounter Visit Diagnoses Not on filedocumented in this encounter
--- OUTSIDE RECORDS SUMMARY | 2025-02-27 09:02 | XMS_ITS | Encounter Summary ---
Author Organization [facility] Healthcare Address [address] [place] [address] Care Team Providers Care Medical Physics Professor Name Role Phone Unavailable Primary Care Provider Unavailabl e Reason for Visit * Diagnostic Imaging (Routine) - Closed Specialty Diagnoses / Procedures Referred By Conthardeep t Referred To Contact Procedures Breast Imaging Screening Outside Reference Suzi Amezquita NP [address] [facility] [phone] [place] [address] Phone: tel: fax: Referral ID Status Reason Start Date Expiration Date Visits Re quested Visits Authorized [id number] Closed 06/17/2023 07/16/2024 1 1 Encounter Details Date Type Department Care Team ([facility] st Contact Info) Description 08/06/2018 Hospital Encounter [facility] Radiology [facility] [address] [place] [address] Social History Tobacco Use Types Packs/Day [...] on file 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 There will be no report generated by a [facility] Radiologist. Narrative RAD_MAMMO_[facility] - 06/17/2023 9:36 AM CDT EXAMINATION: Images For Reference Purposes Only us Suzi Amezquita NP IMG MAMMO PROCEDURES Final Result RAD_MAMMO_[facility] documented in this encounter Visit Diagnoses Not on filedocumented in this encounter
--- OUTSIDE RECORDS SUMMARY | 2025-02-27 09:02 | XMS_ITS | Clinical Summary ---
Author Organization [facility] Address [address] [place] [address] Care Team Providers Care Hr Analyst Name Role Phone Lokesh Carter MD Primary Care Provider [phone] Source Comments [facility],non-owned Affiliates and Associated Physician Practices is amultiple site organization consisting of ambulatory clinics and hospital sitesin [place], [place], [place] and [place]. This disclosure is being madepursuant to the Care Everywhere program and may not contain all information available regarding this patient. Last updated 18.[facility] Allergies No known active allergies Medications * [...] sprayIndications:Acut e maxillary sinusitis, recurrence not specified [place] 2 sprays into each nostril once daily [...] Comments Blood Pressure 114/76 11/21/2018 2:49 PM RESIDENTIAL GREEN BUILDING DESIGNER Pulse 61 11/21/2018 2:49 PM RESIDENTIAL GREEN BUILDING DESIGNER Temperature 36.8 C (98.2 F) 11/21/2018 2:49 PM RESIDENTIAL GREEN BUILDING DESIGNER Respiratory Rate 16 04/26/2017 4:37 PM CDT Oxygen Saturation 98% 11/21/2018 2:49 PM RESIDENTIAL GREEN BUILDING DESIGNER Inhaled Oxygen Concentration - - Weight 59 kg (130 lb) 11/21/2018 2:49 PM RESIDENTIAL GREEN BUILDING DESIGNER Height 162.6 cm (5' 4 ) 11/21/2018 2:49 PM RESIDENTIAL GREEN BUILDING DESIGNER Body Mass Index 22.31 11/21/2018 2:49 PM RESIDENTIAL GREEN BUILDING DESIGNER Plan of Treatment Health Maintenance Due Date [...] VACCINE (1 of 2) 2011 COVID-19 VACCINE (1 - 2023-2 5 season) 2024 DEPRESSION SCREENING 11/22/2024 INFLUENZA VACCINE (Season Ended) 2025 Respiratory Syncytial Virus (RSV) Vaccine Pt: or [...] age to complete this topic Care Teams Hr Analyst Relationship Specialty Start Date End Date Lokesh Carter MD [address] [place] [address] PCP - General 01/04/19
--- OUTSIDE RECORDS SUMMARY | 2025-02-27 09:02 | XMS_ITS | Clinical Summary ---
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 Gender Identity Not on file Sexual Orientation [...] 5 season) 2024 05/29/2021, 04/08/2021 Influenza Vaccine (Season Ended) 2025 Breast Cancer Screening-Mammogram 08/22/2025 08/22/2024, 05/12/2023, 02/16/2023 Pneumococcal vaccine <65 Aged Out No longer eligible based on patient's age to complete this topic Procedures Procedure Name Priority Date/Time Associated Diagnosis Comments MRI BREAST BILATERAL W WO CONTRAST Schedule Routine, Read Routine (OP Routine) 02/20/2025 12:53 PM CDT Atypical ductal hyperplasia of breast Dense breast tissue Abnormal finding on breast imaging DIAGNOSTIC MAMMOGRAM BILATERAL W CONRAD Schedule Routine, Read Routine (OP Routine) 08/22/2024 12:23 PM CDT Family history of breast cancer Abscess of the breast and nipple from Last 3 Months or Most Recently Relevant to Health Maintenance Results * MRI Breast Bilateral W WO Contrast (02/20/2025 12:53 PM CDT) Anatomical Region Laterality Modality Breast Bilateral Magnetic Resonan ce 02/20/2025 2:53 PM CDT Impressions 02/20/2025 3:56 PM CDT 1. Marked background parenchymal enhancement which limits the sensitivity of MRI. Within this limitation there is no suspicious enhancement in either breast. Recommend diagnostic left breast mammogram and ultrasound in 6 months to follow up previously described probably benign left breast findings. 2. There is possible borderline cardiomegaly which may be secondary to prone imaging technique and is not significantly changed compared prior examination, however correlation with prior dedicated chest imaging is recommended if available. OVERALL FINAL ASSESSMENT: BI-RADS Category 1: Negative. RECOMMENDATION: 1. Recommend follow-up diagnostic breast imaging in 6 months in August 2025 for reevaluation of previously described probably benign left breast findings seen on ultrasound. 2. Annual breast MRI is recommended due to family history of breast cancer and increased breast density. 3. Correlation with any prior chest imaging for evidence of cardiomegaly can be performed, otherwise chest x-ray could be performed for further evaluation. Dictated by: Lucina Enrique MD The radiology attending physician has personally reviewed this study, and had reviewed and/or edited this written report and agrees with it. Electronically signed by: Vandana Mckeon M.D. Narrative 02/20/2025 3:56 PM CDT EXAMINATION: 1. MRI EXAMINATION OF THE BREASTS WITH AND WITHOUT CONTRAST 2. 3D POST PROCESSING ON A DEDICATED 3D WORKSTATION HISTORY: High-risk Screening. 64-year-old woman with elevated risk of breast cancer due to family history (24.2%). She also has hypoechoic left breast masses for which 12 month follow-up ultrasound has been recommended on 08/22/2024. TECHNIQUE: MRI examination of the breasts per breast tumor protocol with and without gadolinium contrast. A dedicated breast imaging coil was used. The images were transferred to a breast CAD system for 3D post processing and contrast kinetics analysis. CONTRAST: Gadoterate meglumine, 12 ml COMPARISON: Left breast ultrasound dated 08/22/2024, and multiple prior mammograms, most recently 08/22/2024 and breast MRI dated 01/21/2024 BREAST COMPOSITION: Heterogeneous fibroglandular tissue BACKGROUND PARENCHYMAL ENHANCEMENT: Marked, which lowers the sensitivity of MRI FINDINGS: There is marked background parenchymal enhancement, within this limitation there is no suspicious mass or non-mass enhancement in either breast. There is motion artifact and the region of the right axilla. No abnormally enlarged lymph nodes are identified in the visualized portions of either axilla. The heart appears possibly borderline enlarged which may be secondary to prone technique and is not significantly changed compared to prior examination. Procedure Note Vandana Mckeon MD - 02/20/2025 EXAMINATION: 1. MRI EXAMINATION OF THE BREASTS WITH AND WITHOUT CONTRAST 2. 3D POST PROCESSING ON A DEDICATED 3D WORKSTATION HISTORY: High-risk Screening. 64-year-old woman with elevated risk of breast cancer due to family history (24.2%). She also has hypoechoic left breast masses for which 12 month follow-up ultrasound has been recommended on 08/22/2024. TECHNIQUE: MRI examination of the breasts per breast tumor protocol with and without gadolinium contrast. A dedicated breast imaging coil was used. The images were transferred to a breast CAD system for 3D post processing and contrast kinetics analysis. CONTRAST: Gadoterate meglumine, 12 ml COMPARISON: Left breast ultrasound dated 08/22/2024, and multiple prior mammograms, most recently 08/22/2024 and breast MRI dated 01/21/2024 BREAST COMPOSITION: Heterogeneous fibroglandular tissue BACKGROUND PARENCHYMAL ENHANCEMENT: Marked, which lowers the sensitivity of MRI FINDINGS: There is marked background parenchymal enhancement, within this limitation there is no suspicious mass or non-mass enhancement in either breast. There is motion artifact and the region of the right axilla. No abnormally enlarged lymph nodes are identified in the visualized portions of either axilla. The heart appears possibly borderline enlarged which may be secondary to prone technique and is not significantly changed compared to prior examination. IMPRESSION: 1. Marked background parenchymal enhancement which limits the sensitivity of MRI. Within this limitation there is no suspicious enhancement in either breast. Recommend diagnostic left breast mammogram and ultrasound in 6 months to follow up previously described probably benign left breast findings. 2. There is possible borderline cardiomegaly which may be secondary to prone imaging technique and is not significantly changed compared prior examination, however correlation with prior dedicated chest imaging is recommended if available. OVERALL FINAL ASSESSMENT: BI-RADS Category 1: Negative. RECOMMENDATION: 1. Recommend follow-up diagnostic breast imaging in 6 months in August 2025 for reevaluation of previously described probably benign left breast findings seen on ultrasound. 2. Annual breast MRI is recommended due to family history of breast cancer and increased breast density. 3. Correlation with any prior chest imaging for evidence of cardiomegaly can be performed, otherwise chest x-ray could be performed for further evaluation. Dictated by: Lucina Enrique MD The radiology attending physician has personally reviewed this study, and had reviewed and/or edited this written report and agrees with it. Electronically signed by: Vandana Mckeon M.D. Suzi Amezquita NP IM MRI PROCEDURES Final R esult * Diagnostic Mammogram Bilateral W Conrad (08/22/2024 [...] the LEFT breast was performed by the manager credit. BREAST PARENCHYMAL COMPOSITION: The breasts are heterogenously [...] the LEFT breast was performed by the manager credit. BREAST PARENCHYMAL COMPOSITION: The breasts are heterogenously [...] signed by: Britni Pitts M.D. Suzi Amezquita PRIVATE BRANCH EXCHANGE SERVICE ADVISOR IMG MAMMO PROCEDURES Final Result from Last 3 Months or Most Recently Relevant to Health Maintenance [place] [address] [facility] MEDICARE IDPA Care Teams Train Operations Supervisor Relationship Specialty Start Date End Date Ariel Cross MD PCP - General Family Practice 06/10/23 Waleska Garcia MD Referring Physician Obstetrics and Gynecology 06/10/23
--- OUTSIDE RECORDS SUMMARY | 2025-02-27 09:02 | XMS_ITS | Referral Summary ---
Author Organization [facility] Address [address] [place] [address] Care Team Providers Care Personnel Associate Name Role Phone Ariel Cross MD Primary Care Provider [phone] Waleska Garcia MD Unavailable [phone] Encounters Date Type Department Care Team Description 02/20/2025 Results Follow-Up [facility] Surgery [address] [place] [address] Suzi Amezquita NP 02/20/2025 11:26 AM CDT - 02/20/2025 11:59 PM CDT Hospital Encounter [facility] Radiology [facility] [address] [place] [address] Atypical ductal hyperplasia of breast; Dense breast tissue; Abnormal finding on breast imaging Discharge Disposition: Discharge to home or self care from Last 3 Months Allergies No known active allergies Medications Linzess [...] on file 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 Electronically signed by: Vandana Mckeon M.D. us Suzi Amezquita STUDENT NURSE IMG MRI PROCEDURES Final R esult * Diagnostic [...] the LEFT breast was performed by the director consumer affairs. BREAST PARENCHYMAL COMPOSITION: The breasts are heterogenously [...] the LEFT breast was performed by the director consumer affairs. BREAST PARENCHYMAL COMPOSITION: The breasts are heterogenously [...] mammogram. Electronically signed by: Britni Pitts M.D. [facility]ED[facility] Final Result from Last 3 Months or Most Recently Relevant to Health Maintenance Insurance MEDICARE [place] [address] [employer] Care Teams Personnel Associate Relationship Specialty Start Date End Date Ariel Cross MD PCP - General Family Practice 06/10/23 Waleska Garcia MD Referring Physician Obstetrics and Gynecology 06/10/23
--- OUTSIDE RECORDS SUMMARY | 2025-02-27 09:02 | XMS_ITS | Encounter Summary ---
Author Organization [facility] Address [address] [place] [address] Care Team Providers Care Mineral Industry Teacher Name Role Phone Unavailable Primary Care Provider Unavailabl e Reason for Visit * Diagnostic Imaging (Routine) - Closed Specialty Diagnoses / Procedures Referred By Conthardeep t Referred To Contact Procedures Breast Imaging Screening Outside Reference Suzi Amezquita NP [address] [facility] [id number] [place] [address] Phone: tel: fax: Referral ID Status Reason Start Date Expiration Date Visits Re quested Visits Authorized [id number] Closed 06/17/2023 07/16/2024 1 1 Encounter Details Date Type Department Care Team ([facility] st Contact Info) Description 09/19/2019 Hospital Encounter [facility] [address] [place] [address] Social History Tobacco Use Types Packs/Day [...] on file 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 There will be no report generated by a [facility] Radiologist. Narrative [facility] - 06/17/2023 9:36 AM CDT EXAMINATION: Images For Reference Purposes Only us Suzi Amezquita NP IMG MAMMO PROCEDURES Final Result [facility]MO[facility] documented in this encounter Visit Diagnoses Not on filedocumented in this encounter
--- OUTSIDE RECORDS SUMMARY | 2025-02-27 09:02 | XMS_ITS | Encounter Summary ---
Author Organization [facility] Address [address] [facility] [address] [place] [address] Phone Care Team Providers Care Fan Mail Editor Name Role Phone Ariel Cross MD Primary Care Provider [phone] Waleska Garcia MD Unavailable [phone] Encounter Details Date Type Department Care Team (Late st Contact Info) Description 02/20/2025 Results Follow-Up [facility] Surgery [facility] [facility] [address] [place] [id number] Suzi Amezquita, HANNA [address] [facility] [id number] [place] [address] Social History Tobacco Use Types Packs/Day Years [...] on file 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
--- OUTSIDE RECORDS SUMMARY | 2025-02-27 09:02 | XMS_ITS | Data Portability ---
Author Organization [facility] [place], [facility] Address [address] [place] [address] Care Team Providers Care Net Manager Name Role Phone DANIELE GARRET Primary Care Provider [phone] Assessment Encounter Date Assessment Date Assessment LastModified [...] (0.1 mg/gram) vaginal cream 2023 024 N[facility]01891, [address] [facility] [address], [place], [place], [id number], 14:21:09 nystatin-t riamcinolo ne 100,000 unit/gram- 0.1 % topical ointment 2023 024 [email or web address] [facility] #72919, [address] [place] [address], [id number], 4 15:29:02 Valtrex 1 gram tablet [address] [facility]06704, [address] [facility] [address] [place] [address], [id number], 4 10:51:29 lidocaine 5 % topical ointment [address] [facility] #73367, [address] [facility] [address] [place] [address], [id number], 4 10:50:05 estradiol 0.01% (0.1 mg/gram) vaginal cream [address] [facility] #19493, [address] [facility] [address] [place] [address], [id number], 4 10:49:42 Patient TargetsNo targets recorded. Patient [...] 39 Autho nesha g Provi aundrea: Waleska Moirn MD Colle cted: 12/29 1502 Order ing [...] as clini carlos cabral nted. Not Available [facility] (Lab) [address] [facility], [place], [address], 01/02/2022 17:12:41 10/27/20 23 10/27/2023 CULTU RE: AEROB IC/AN AEROB IC result report SEE RESULT S BELOW abnormal Test: Cultu re: Aerob ic/An aerob ic Speci men Sourc e: Other Speci men Type: Micro biolo gy Speci men Speci men Date: 2022 2:57 PM Resul t Date: 10/31 9:30 AM Resul t Statu s: Final resul t Abnor mal: Yes Jarrett lord Lab: [facility] [address] [facility] [address] Tel: CULTU RE ----- ----- ----- --- [...] antib iotic s such as trime thopr im-brower lfame thoxa zole, cipro floxa sukumar and levof loxac in can also be consi dered if the organ ism is susce ptibl e. Not Available [facility] (Lab) [address], [place], [address], 10/31/2023 10:34:20 10/27/20 23 10/27/2023 CULTU RE: HERPE S SIMPL EX VIRUS (HSV) , REFLE X TYPIN G source LESION SCRAPI NGS Not Available [facility] (Lab) [address], [place], [address], 10/31/2023 10:34:20 10/27/20 23 10/27/2023 CULTU RE: HERPE S SIMPL EX VIRUS (HSV) , REFLE X TYPIN G hsv culture, body fluid NOT ISOLAT ED swab taken from perin eum Perfo rming Organ izati on Infor matio n: Site ID: CB Name: Rajat garcia s-Che casie Ventura Addre ss: [address] [place], [place] [phone] Dire tor: [place] [employer] s Not Available [facility] (Lab) [address] [facility], [place], [address], 10/31/2023 10:34:20 03/16/20 24 03/16/2024 CULTU RE: [...] t Abnor mal: Yes Resul ting Lab: [facility] [address] [facility] [address] [facility] [address] Tel: CULTU RE ----- ----- ----- --- Moder ate Growt h Strep tococ cus agala ctiae (Grou p B) ([facility]) Moder ate Growt h Allos cardo via omnic olens ([facility]) Cultu re sampl es colle cted from [...] No Neutr ophil s seen Not Available [facility] (Lab) [address] [facility], [place], [address], 03/19/2024 13:54:26 03/16/20 24 03/16/2024 VAGIN ITIS/ VAGIN OSIS, DNA PROBE lizzy sp. detection, direct probe Negati ve negati ve Not Available [facility] (Lab) [address] [place], [address], 03/19/2024 13:54:27 03/16/20 24 03/16/2024 VAGIN ITIS/ VAGIN OSIS, DNA PROBE gardnerella vag. detection, direct probe Positi ve negati ve abnormal Not Available [facility] (Lab) [address] [facility], [place], [address], 03/19/2024 13:54:27 03/16/20 24 03/16/2024 VAGIN ITIS/ VAGIN OSIS, DNA PROBE trichomonas vag. detection, direct probe Negati ve negati ve Not Available [facility] (Lab) [address] [facility], [place], [address], 03/19/2024 13:54:27 03/16/20 24 03/16/2024 IMAGE GUIDE [...] as clini carlos cabral nted. Not Available [facility] (Lab) [address], [place], [address], 03/22/2024 15:48:59 05/12/20 23 02/16/2023 MAMMO , scree zenobia, bilat eral No observ ation record ed. [email or web address] [address] [place] [address], [id number], 05/27/2023 10:43:55 06/07/20 23 06/07/2023 MAMMO , diagn ostic , digit al, bilat eral No observ ation record ed. [email or web address] [facility] [address] [place] [address] [place] [address], [phone], 09/13/2023 15:45:45 06/07/20 23 06/07/2023 MAMMO , diagn ostic , digit al, bilat eral No observ ation record ed. [email or web address] [place] [address], [id number], 06/08/2023 17:42:17 Result Notes None recorded. Problems Name Problem SNOMED Code Status Onset Date Resolution Date Notes Provider Name and Address Organization Details Recorded Time Atrophic vaginiti s 28756946 Active 2015 Postmeno pausal atrophic vaginiti s;Practi ce ID: 0001 Not Available [facility] 0 17:22:26 Reduced libido 3998768 Active 2015 Decrease d libido;P ractice ID: 0001 Not Available [facility] 0 17:22:[address] Concept Completed 201604/02/2021 Encntr for general adult medical exam w/o abnormal findings ;Practic e ID: [id number] Waleska Garcia MD [address], [place], [address], [facility] [address] 10:38:[address] Concept Completed 201604/02/2021 Encntr for marine habitat resource specialist exam (general ) (routine ) w/o abn findings ;Practic e ID: 0001 Waleska Garcia MD [address], [place], [address], [facility] 1 10:38:07 Screenin g for malignan t neoplasm of rectum Completed 201604/02/2021 Encounte r for screenin g for malignan t neoplasm of rectum;P ractice ID: [id number] Waleska Garcia MD [address], [place], [address], [facility] 1 10:38:02 Superfic ial pain on intercou rse 072535955 Active 2017 Superfic ial (introit al) dyspareu jennifer;Prac cortez ID: 0001 Not Available [facility] 0 17:22:27 Screenin g for malignan t neoplasm of cervix Completed 201804/02/2021 Encounte r for screenin g for malignan t neoplasm of cervix;P ractice ID: 0001 Waleska Garcia MD [address], [place], [address], [facility] 1 10:38:00 Acute vaginiti s 02351219 Completed 201904/02/2021 Acute vaginiti s;Practi ce ID: 0001 Waleska Garcia MD [address], [place], [address], [facility] 1 10:37:52 Speciali zed medical examinat ion Completed 201204/02/2021 Gynecolo gical Examinat ion;Tai rded Elsewher e: No Locat ion: [facility] S ource: EHR Dough Cutting Machine Operator carlitos: N Practi ce ID: 0001 Delta lable Time: 01:45:00 PM Waleska Garcia MD [address], [place], [address], [facility] 1 10:38:09 Breast lump 37177533 Active 2014 Lump in breast;R ecorded Elsewher e: No Locat ion: [facility] S ource: EHR Dough Cutting Machine Operator carlitos: N Practi ce ID: 0001 Delta lable Time: 11:30:00 AM Not Available [facility] 0 17:22:27 Adult health examinat ion Completed 201204/02/2021 Routine Medical Exam;Rec orded Elsewher e: No Locat ion: [facility] S ource: EHR Dough Cutting Machine Operator carlitos: N Harleyti ce ID: 0001 Delta lable Time: 01:45:00 PM Waleska Garcia MD [address], [place], [address], [facility] 1 10:37:54 Ulcerati on of vulva 60372081 Completed 201504/02/2021 Ulcerati on of vulva;Re corded Elsewher e: No Locat ion: [facility] S ource: EHR Dough Cutting Machine Operator carlitos: N Harleyti ce ID: 0001 Delta lable Time: 02:15:00 PM Waleska Garcia MD [address], [place], [address], [facility] 1 10:38:14 Problem Notes None recorded. Procedures Surgical History Date Name Laterality Status Provider Name and Address Organization Details Recorded Time 4 Date of Last Pap Smear completed Odalis Roche [facility] 04/06/2024 15:35:59 Tubal Ligation completed Faiza Murphy [facility] 10/27/2023 11:24:27 Imaging Results Imaging Date Name Status LastModified by Organiz ation Details LastModified Time 02/16/2023 MAMMO, screening, bilateral completed [email or web address] [place] [address] [facility] [address] [place] [address], [address], 05/27/2023 10:43:55 06/07/2023 MAMMO, diagnostic, digital, bilateral completed [email or web address] [facility] [address] [place] [address], [id number], 09/13/2023 15:45:45 06/07/2023 MAMMO, diagnostic, digital, bilateral completed [email or web address] [place], [place] [address] [facility] [address] [place] [address], [address], 06/08/2023 17:42:17 Procedure Notes None recorded. Medical [...] ed Elsewher e: Yes Loca tion: [facility] M odify By: cary hesterunttamara DateTime : [...] Elsewher e: No Locat ion: Andrea rawls [facility] odify By: humphrey anastacia Enco unter DateTime : 02/08/20 01:15:00 PM Not Available Not Available Not Available Effexor XR 37.5 mg capsule,e xtended release take 1 capsule by oral route every day with food 04/11 completed Prescrib ed Elsewher e: Yes Loca tion: Andrea rawls [facility] odify By: estela sales DateTime : [...] Elsewher e: No Locat ion: Andrea rawls [facility] odify By: humphrey anastacia Dianao unter DateTime : 02/08/20 01:15:00 PM Not Available Not Available Not Available methocarb didi 750 mg tablet TAKE 1 TABLET BY MOUTH THREE TIMES DAILY active Not Available Not Available No t Available Robaxin 500 mg tablet take 2 tablet by oral route 4 times every day 04/02 completed Prescrib ed Elsewher e: Yes [facility] By: dinah george DateTime : 02/12/20 [...] Prescrib ed Elsewher e: Yes [facility] By: cary Rawls DateTime : 04/11/20 [...] Prescrib ed Elsewher e: Yes [facility] By: cary hester DateTime : 02/12/20 [...] Prescrib ed Elsewher e: Yes Loca tion: [facility] odify By: cary george DateTime : 10/27/20 18 01:15:00 PM Not Available Not Available Not Available Abilify 9.75 mg/1.3 mL intramusc ular solution 04/11 completed Prescrib ed Elsewher e: Yes Loca tion: [facility] odify By: estela sales DateTime : [...] Updated DateTime 12/29/2021 165.1 cm 24 kg/m2 78544.3 g 128 mm[Hg] 85 mm[Hg] Jessica Salomon [facility] 2 14:26:08 Date Recorded Body height Body mass index (BMI) Body weight Systolic blood pressure Diastolic blood pressure Provider Name and Address Organization Details Last Updated DateTime 10/27/2023 165.1 cm 23.8 kg/m2 93883.71 g 130 mm[Hg] 84 mm[Hg] Faiza Murphy [facility] 3 11:24:02 Date Recorded Body height Body mass index (BMI) Body weight Systolic blood pressure Diastolic blood pressure Provider Name and Address Organization Details Last Updated DateTime 03/16/2024 165.1 cm 23.8 kg/m2 68445.71 g 146 mm[Hg] 96 mm[Hg] Petra Jolley [facility] 4 15:29:13 Date Recorded Body height Body mass index (BMI) Body weight Systolic blood pressure Diastolic blood pressure Provider Name and Address Organization Details Last Updated DateTime 04/06/2024 165.1 cm 23.5 kg/m2 89146.52 g 132 mm[Hg] 86 mm[Hg] Odalis Hollanden [facility] 4 15:35:14 Date Recorded Body height Body mass index (BMI) Body weight Systolic blood pressure Diastolic blood pressure Systolic blood pressure Diastolic blood pressure Provider Name and Address Organization Details Last Updated DateTime 4 165.1 cm 23.2 kg/m2 45392.7 8 g 151 mm[Hg] 96 mm[Hg] 130 mm[Hg] 80 mm[Hg] Josi Del Castillohiro [facility] 4 14:25:26 Social History Question Answer Notes LastModified by Organizat ion Details LastModified Time Tobacco Smoking Status Never Smoker Jessica jiang, [facility] 04/02/2021 10:28:25 What Is Your Level Of Alcohol Consumption? None Information not available 04/02/2021 Are You Blind Or Do You Have Difficulty Seeing? No [email or web address] Information n ot available 04/06/2024 In The [...] Do You Have Serious Difficulty Hearing? No Information not available 04/06/2024 Do You Use Your Seat Belt Or Car Seat Routinely? Yes [email or web address] Information not available 04/06/2024 Do You Have Smoke And Carbon Monoxide Detectors In Your Home? Yes [email or web address] Information not available 04/06/2024 Do You Use Any Illicit Or Recreational Drugs? No Information not available 04/02/2021 Do You Use Sunscreen Routinely? Yes [email or web address] Information not available 04/06/2024 Sex: Unknown Functional Status Question Answer Note LastModified by Organizat ion Details LastModified Time Do you have difficulty walking or climbing stairs? No [email or web address] Information not available 04/06/2024 Are you able to walk? YESWOREST Information not available 04/06/2024 Are you able to care for yourself? Yes [email or web address] Information not available 04/06/2024 Do you have difficulty dressing or bathing? No [email or web address] Information not available 04/06/2024 Mental Status None [...] SNOMED-CT Code Diagnosis ICD10 Code Diagnosis Note [id number] Waleska Garcia MD [place] [address],[place] [address] 04/02/2021 10:16:24 04/02/2021 11:42:42 Mass of left breast 6305241467 1351484 N63.20 Atrophic vaginitis 97104 000 N95.2 [id number] Waleska Garcia MD [place] [address],[place] [address] 12/29/2021 14:10:49 12/29/2021 15:27:47 Gynecologic examination 96606613 Z01.419 Atrophic vaginitis 42912 000 N95.2 [id number] YENNI Fish [place] [address],[place] [address] 10/27/2023 10:57:21 10/27/2023 11:55:56 Lesion of vulva 500140199 N90.89 multiple HSV appearing lesionsHSV and cx sentDiscus sed HSV with patientval trex/lidoc adilene rx sent - r/b/a reviewedwi ll update patient with results when availableR TC if symptoms persist past valtrex course Time spent in visit is a total of 35 mins with at least 50% of visit consisting of counseling and review of plan of care. [id number] YENNI Fish [place] [address],[place] [address] 03/16/2024 15:26:05 03/16/2024 18:04:43 Gynecologic examination 82564449 Z01.419 WWEpap updateddec lined STI screenmamm mingo UTDcolonos copy UTDdexa UTD/PCProu lori labs UTD/PCPBP precaution s reviewed, encouraged PCP f/uTake Calcium with Vitamin D daily.Do monthly self breast exams.It is advised to get annual flu shot in the fall and she could obtain at [facility] or [facility]. If you haven't received the Tdap vaccine [...] or respond to this email Vulval irritation 558736 003 N90.89 vaginitis panel sentcx sentvulvar care guidelines discussedr ecommend f/u in 1 month, if irritation persist vulvar biopsy [id number] Luc Guillaume MD [place] [address],[place] [address] 04/06/2024 15:27:26 04/06/2024 22:15:06 [id number] Leticia Tamayo HANNA [place] [address],[place] [address] 06/15/2024 13:57:04 06/15/2024 14:28:58 Vaginal dryness 40882854 N89.8 rx sent for estradiol cream, apply [...] 12/29/2021 1 [place] Aida Gutierrez Short [id number] Aida Gutierrez Short 10/27/2023 1 [place] Aida Gutierrez Short [id number] Aida Gutierrez Short 10/27/2023 2 [place] [facility] PUBLIC AID Aida Gutierrez Short [id number] Aida Gutierrez Short 03/16/2024 1 [place] Aida Gutierrez Short [id number] Aida Gutierrez Short 03/16/2024 2 [place] [facility] PUBLIC AID Aida Gutierrez Short [id number] Aida Gutierrez Short 04/06/2024 1 [place] Aida Gutierrez Short [id number] Aida Gutierrez Short 04/06/2024 2 [place] [facility] OF PUBLIC AID Aida Gutierrez Short [id number] Aida Gutierrez Short 06/15/2024 1 [place] Aida Gutierrez Short [id number] Aida Gutierrez Short 06/15/2024 2 [place] [facility] OF PUBLIC AID Aida Gutierrez Short [id number] Aida Gutierrez Short Notes Date Note Type [...] concerns- Waleska Garcia MD [address], [place], [address], [place] - [facility] 12/29/2021 15:16:20 3 text/html 63yo postmenopausal femalepresents for evaluation of vulvar lesionlocated on perineumnoticed symptoms about 1 week agoraw, feels like tiny cutshurts when urine touchesclothing/sitting is uncomfortableSA with steady male partner - partner has a hx of HSV and takes daily valtrex YENNI Fish [address], [place], [address], [facility] 10/27/2023 11:53:24 4 text/html Annual Manager Steel Post-MenopausalReported bypatient.Menopausal Symptoms:no menopausal symptoms; normal vaginal [...] the past year; history of recent colonoscopyNotes:63yo [id number] last pap 12/2021 : normalcolonoscopy UTD : [...] the past few days [address], [place], [address], [facility] 03/16/2024 17:58:47 4 text/html 64yopresents to discuss restarting vaginal estrogen creamstopped using about 3 months agosince then has noticed dryness with IC previously seen 03/16/2024 for vulvar irritation/itching. Those symptoms have since resolved [address], [place], [address], [facility] 06/15/2024 14:27:29 OBGyn Episode Ob Episode Information Episode Created Date Number of Fetuses Patient Bloodtype Patient rh Status Prepregnancy Weight lbs Domestic Partner Domestic Partner Phone Father Name Public Policy Professor Status 04/02/20 21 1 CLOSED Fetus Data [...] Domestic Partner Domestic Partner Phone Father Name Public Policy Professor Status 04/02/20 21 1 CLOSED Fetus Data [...] Domestic Partner Domestic Partner Phone Father Name Public Policy Professor Status 04/02/20 21 1 CLOSED Fetus Data [...]
--- OUTSIDE RECORDS SUMMARY | 2025-04-05 10:32 | XMS_ITS | Encounter Summary ---
Author Organization [facility] Healthcare Address [address] [place] [address] Care Team Providers Care Reading Instructor Name Role Phone Unavailable Primary Care Provider Unavailabl e Reason for Visit * Diagnostic Imaging (Routine) - Closed Specialty Diagnoses / Procedures Referred By Contac t Referred To Contact Procedures Breast Imaging Screening Outside Reference Suzi Amezquita NP [address] [facility] [id number] [place] [address] Phone: tel: fax: Referral ID Status Reason Start Date Expiration Date Visits Re quested Visits Authorized [id number] Closed 06/17/2023 07/16/2024 1 1 Encounter Details Date Type Department Care Team ([facility] st Contact Info) Description 09/19/2019 Hospital Encounter [facility] [address] [place] [address] Social History Tobacco Use Types Packs/Day [...] on file 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 There will be no report generated by a [facility] Radiologist. Narrative [facility] - 06/17/2023 9:36 AM CDT EXAMINATION: Images For Reference Purposes Only us Suzi Amezquita NP IMG MAMMO PROCEDURES Final Result [facility] documented in this encounter Visit Diagnoses Not on filedocumented in this encounter
--- OUTSIDE RECORDS SUMMARY | 2025-04-05 10:32 | XMS_ITS | Encounter Summary ---
Author Organization [facility] Healthcare Address [address] [place] [address] Care Team Providers Care Extract Mixer Name Role Phone Unavailable Primary Care Provider Unavailabl e Reason for Visit * Diagnostic Imaging (Routine) - Closed Specialty Diagnoses / Procedures Referred By Contac t Referred To Contact Procedures Breast Imaging Screening Outside Reference Suzi Amezquita NP [address] [facility] [id number] [place] [address] Phone: tel: fax: Referral ID Status Reason Start Date Expiration Date Visits Re quested Visits Authorized [id number] Closed 06/17/2023 07/16/2024 1 1 Encounter Details Date Type Department Care Team ([facility] st Contact Info) Description 11/06/2020 Hospital Encounter [facility] [address] [place] [address] Social History Tobacco Use Types Packs/Day [...] on file Legal 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 There will be no report generated by a [facility] Radiologist. Narrative [facility] - 06/17/2023 9:36 AM CDT EXAMINATION: Images For Reference Purposes Only us Suzi Amezquita NP IMG MAMMO PROCEDURES Final Result [facility] documented in this encounter Visit Diagnoses Not on filedocumented in this encounter
--- OUTSIDE RECORDS SUMMARY | 2025-04-05 10:32 | XMS_ITS | Clinical Summary ---
Author Organization [facility] [employer] Address [address] [place] [address] Care Team Providers Care Truck Car And Bus Cleaner Name Role Phone Lokesh Carter MD Primary Care Provider [phone] Source Comments [facility] [employer],non-owned Affiliates and Associated Physician Practices is amultiple site organization consisting of ambulatory clinics and hospital sitesin [place], [place], [place] and [place]. This disclosure is being madepursuant to the Care Everywhere program and may not contain all information available regarding this patient. Last updated 18.[facility] [employer] Allergies No known active allergies Medications * Be aware that medications may not be up to date on this document. Alwaysverify current medications with the patient. 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:32 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 Gender Identity Not on file Sexual Orientation Not on file Last Filed Vital Signs Vital Sign Reading Time Taken Comments Blood Pressure 114/76 11/21/2018 2:49 PM WRAPPER AND PRESERVER Pulse 61 11/21/2018 2:49 PM WRAPPER AND PRESERVER Temperature 36.8 C (98.2 F) 11/21/2018 2:49 PM WRAPPER AND PRESERVER Respiratory Rate 16 04/26/2017 4:37 PM CDT Oxygen Saturation 98% 11/21/2018 2:49 PM WRAPPER AND PRESERVER Inhaled Oxygen Concentration - - Weight 59 kg (130 lb) 11/21/2018 2:49 PM WRAPPER AND PRESERVER Height 162.6 cm (5' 4 ) 11/21/2018 2:49 PM WRAPPER AND PRESERVER Body Mass Index 22.31 11/21/2018 2:49 PM WRAPPER AND PRESERVER Plan of Treatment Health Maintenance Due Date Last Done Comments COLOGUARD (AGES 45-75) - COL ON CA SCREENING 1961 COLON MONITORING 1961 COLONOSCOPY - COLON CA SCREENING 1961 CT COLONOGRAPHY - COLON CA SCREENING 1961 Colorectal Cancer Screening 1961 FIT - COLON CA SCREENING 1961 FLEX SIG - COLON CA SCREENING 1961 LIPID TESTING 1961 MAMMOGRAM 1961 HIV SCREENING 1976 HEPATITIS C SCREENING [...] age to complete this topic Insurance MEDICARE MEDICARE MEDICARE Care Teams Truck Car And Bus Cleaner Relationship Specialty Start Date End Date Lokesh Carter MD [address] [address] PCP - General 01/04/19
--- OUTSIDE RECORDS SUMMARY | 2025-04-05 10:32 | XMS_ITS | Encounter Summary ---
Author Organization [facility] Address [address] [facility] [address] [place] [address] Phone Care Team Providers Care Case Assistant Name Role Phone Ariel Cross MD Primary Care Provider [phone] Waleska Garcia MD Unavailable [phone] Encounter Details Date Type Department Care Team (Late st Contact Info) Description 02/20/2025 Results Follow-Up [facility] [place] Floor 8 [place] [id number] Suzi Amezquita, HANNA [address] [facility] [id number] [place] [address] Social History Tobacco Use Types Packs/Day Years [...] on file 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
--- OUTSIDE RECORDS SUMMARY | 2025-04-05 10:32 | XMS_ITS | Clinical Summary ---
Author Organization [facility] Address [address] [place] [address] Care Team Providers Care Sulfuric Acid Plant Operator Name Role Phone Ariel Cross MD Primary Care Provider [phone] Waleska Garcia MD Unavailable [phone] Allergies No known active allergies Medications Linzess [...] 02/20/2025 11:59 PM CDT Hospital Encounter [facility]) [address] [place] [address] Atypical ductal hyperplasia of breast; Dense breast tissue; Abnormal finding on breast imaging Discharge Disposition: Discharge to home or self care 02/20/2025 Results Follow-Up [facility] [address] [facility] [address] [place] [address] Suzi Amezquita NP from Last [...] on file Legal 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 BREAST PARENCHYMAL COMPOSITION: The breasts are heterogenously [...] the LEFT breast was performed by the wildlife rehabilitator. BREAST PARENCHYMAL COMPOSITION: The breasts are heterogenously [...] signed by: Britni Pitts M.D. Suzi Amezquita PRINTED CIRCUIT BOARD ASSEMBLY REPAIRER IMG MAMMO PROCEDURES Final Result from Last 3 Months or Most Recently Relevant to Health Maintenance Insurance MEDICARE [facility] MEDICARE IDPA Care Teams Sulfuric Acid Plant Operator Relationship Specialty Start Date End Date Ariel Cross MD PCP - General Family Practice 06/10/23 Waleska Garcia MD Referring Physician Obstetrics and Gynecology 06/10/23
--- OUTSIDE RECORDS SUMMARY | 2025-04-05 10:32 | XMS_ITS | Clinical Summary ---
Author Organization [facility] Address [facility] [place] [address] Care Team Providers Care Delivery Nurse Name Role Phone Lokesh Carter MD Primary [...] Screening with HPV 1991 Mammogram Screening 2001 Pneumococcal Vaccine: 50+ Ye ars (1 of 1 - PCV) 2011 Zoster Vaccines (1 of 2) 2011 COVID-19 [...] complete this topic Insurance MEDICARE Care Teams Delivery Nurse Relationship Specialty Start Date End Date Lokesh Carter MD PCP - General INTERNAL MEDICINE 01/05/20
--- OUTSIDE RECORDS SUMMARY | 2025-04-05 10:32 | XMS_ITS | Encounter Summary ---
Author Organization [facility] Healthcare Address [address] [place] [address] Care Team Providers Care Property Management Assistant Name Role Phone Unavailable Primary Care Provider Unavailabl e Reason for Visit * Diagnostic Imaging (Routine) - Closed Specialty Diagnoses / Procedures Referred By Conthardeep t Referred To Contact Procedures Breast Imaging Screening Outside Reference Suzi Amezquita NP [address] [facility] [id number] [place] [address] Phone: tel: fax: Referral ID Status Reason Start Date Expiration Date Visits Re quested Visits Authorized [id number] Closed 06/17/2023 07/16/2024 1 1 Encounter Details Date Type Department Care Team ([facility] st Contact Info) Description 07/01/2017 Hospital Encounter [facility]) [address] [place] [address] Social History Tobacco Use Types Packs/Day [...] on file Legal 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 There will be no report generated by a [facility] Radiologist. Narrative [facility] - 06/17/2023 9:37 AM CDT EXAMINATION: Images For Reference Purposes Only us Suzi Amezquita NP IMG MAMMO PROCEDURES Final Result [facility] documented in this encounter Visit Diagnoses Not on filedocumented in this encounter
--- OUTSIDE RECORDS SUMMARY | 2025-04-05 10:32 | XMS_ITS | Clinical Summary ---
Author Organization [facility] Address [address] [address] Phone Care Team Providers Care Explosive Operator Bomb Name Role Phone Ian Talavera DO Unavailable [phone] [address] Sandeep Primary Care Provider [phone] Medications polyethylene glycol (MIRALAX) Powder Mix the entire bottle with 64 oz of a clear liquid. Use as directed by the office for colonoscopy prep. 255 g 0 6 Active Social History Tobacco Use Types Packs/Day Years Used Date Smoking Tobacco: Never Assessed Comments Unknown Sex and Gender Information Value Date Recorded Sex Assigned at Not on file Legal Sex Female 9:12 AM CREW ATTENDANT Gender Identity Not on file Sexual Orientation [...] to Health Maintenance Insurance MEDICARE Care Teams Explosive Operator Bomb Relationship Specialty Start Date End Date Sandeep [address]ion [address] [place] [address] PCP - General Family Medicine 01/02/19 Ian Talavera DO Gastroenterology 03/23/16
--- OUTSIDE RECORDS SUMMARY | 2025-04-05 10:32 | XMS_ITS | Encounter Summary ---
Author Organization [facility] Healthcare Address [address] [place] [address] Care Team Providers Care Pack Room Operator Name Role Phone Unavailable Primary Care Provider Unavailabl e Reason for Visit * Diagnostic Imaging (Routine) - Closed Specialty Diagnoses / Procedures Referred By Conthardeep t Referred To Contact Procedures Breast Imaging Screening Outside Reference Suzi Amezquita NP [address] [facility] [id number] [place] [address] Phone: tel: fax: Referral ID Status Reason Start Date Expiration Date Visits Re quested Visits Authorized [id number] Closed 06/17/2023 07/16/2024 1 1 Encounter Details Date Type Department Care Team ([facility] st Contact Info) Description 08/06/2018 Hospital Encounter [facility]) [address] [place] [address] Social History Tobacco Use Types Packs/Day [...] on file 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 There will be no report generated by a [facility] Radiologist. Narrative [facility] - 06/17/2023 9:36 AM CDT EXAMINATION: Images For Reference Purposes Only us Suzi Amezquita NP IMG MAMMO PROCEDURES Final Result [facility] documented in this encounter Visit Diagnoses Not on filedocumented in this encounter
--- OUTSIDE RECORDS SUMMARY | 2025-04-05 10:32 | XMS_ITS | Referral Summary ---
Author Organization [facility] Address [address] [place] [address] Care Team Providers Care Pumper Brewery Name Role Phone Ariel Cross MD Primary Care Provider [phone] Waleska Garcia MD Unavailable [phone] Encounters Date Type Department Care Team Description 02/20/2025 Results Follow[facility]Up [facility] [address] [facility] Floor [address] [place] [address] Suzi Amezquita NP 02/20/2025 11:26 AM CDT - 02/20/2025 11:59 PM CDT Hospital Encounter [facility] Radiology [facility]) [address] [place] [address] Atypical ductal hyperplasia of breast; [...] on file Legal Sex Female 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 us Suzi Amezquita HOME THEATER EXPERIENCE EXPERT IMG MRI PROCEDURES Final R esult * [...] the LEFT breast was performed by the resistance brazer. BREAST PARENCHYMAL COMPOSITION: The breasts are heterogenously [...] the LEFT breast was performed by the resistance brazer. BREAST PARENCHYMAL COMPOSITION: The breasts are heterogenously [...] Electronically signed by: Britni Pitts M.D. [facility] Final Result from Last 3 Months or Most Recently Relevant to Health Maintenance Insurance MEDICARE IDPA MEDICARE IDPA Care Teams Pumper Brewery Relationship Specialty Start Date End Date Ariel Cross MD PCP - General Family Practice 06/10/23 Waleska Garcia MD Referring Physician Obstetrics and Gynecology 06/10/23
== END 2025-02-27 10:24 | disposition home or self-care (01) ==
PROVIDERS: PCP Family Medicine; Visit Provider Family Medicine
DX: K76.0 Fatty (change of) liver, not elsewhere classified (principal)
CPT/HCPCS: 76705

== ENCOUNTER 2025-07-02 10:38 | Outpatient (CLI) | payer MEDICARE, MEDICAID, SELFPAY ==
--- OUTSIDE RECORDS SUMMARY | 2025-07-02 10:46 | XMS_ITS | Clinical Summary ---
Author Organization [facility] Address [address] [place] [address] Care Team Providers Care Bowling Alley Floors Installer Name Role Phone Lokesh Carter MD Primary Care Provider [phone] Source Comments [facility],non-owned Affiliates and Associated Physician Practices is amultiple site organization consisting of ambulatory clinics and hospital sitesin [place], [place], [place] and [place]. This disclosure is being madepursuant to the Care Everywhere program and may not contain all information available regarding this patient. Last updated 18.[facility] Allergies No known active allergies Medications * Be aware that medications may not be up to date on this document. Alwaysverify current medications with the patient. ALPRAZolam (XANAX PO) Active HYDROCODONE-EULALIA TAMINOPHEN PO Active DIVALPROEX SODIUM PO Active METHOCARBAMOL PO Active Alendronate Sodium (FOSAMAX PO) Active fluticasone propionate (FLONASE) 50 MCG/ACT nasal sprayIndication s:Acute maxillary sinusitis, recurrence not specified [place] 2 sprays into each nostril once daily 1 bottles 11/21/2018 Active Social History Tobacco Use Types Packs/Day Years Used Date Smoking Tobacco: Former Smokeless Tobacco: Never Tobacco Cessation:Counseling Given: Yes Comments No Sex and Gender Information Value Date Recorded Sex Assigned at Not on file Legal Sex Female 11:32 AM FINAL ASSEMBLY AND PACKING SUPERVISOR Gender Identity Not on file Sexual Orientation Not on file Last Filed Vital Signs Vital Sign Reading Time Taken Comments Blood Pressure 114/76 11/21/2018 2:49 PM FINAL ASSEMBLY AND PACKING SUPERVISOR Pulse 61 11/21/2018 2:49 PM FINAL ASSEMBLY AND PACKING SUPERVISOR Temperature 36.8 C (98.2 F) 11/21/2018 2:49 PM FINAL ASSEMBLY AND PACKING SUPERVISOR Respiratory Rate 16 04/26/2017 4:37 PM CDT Oxygen Saturation 98% 11/21/2018 2:49 PM FINAL ASSEMBLY AND PACKING SUPERVISOR Inhaled Oxygen Concentration - - Weight 59 kg (130 lb) 11/21/2018 2:49 PM FINAL ASSEMBLY AND PACKING SUPERVISOR Height 162.6 cm (5' 4) 11/21/2018 2:49 PM FINAL ASSEMBLY AND PACKING SUPERVISOR Body Mass Index 22.31 11/21/2018 2:49 PM FINAL ASSEMBLY AND PACKING SUPERVISOR Plan of Treatment Health Maintenance Due Date [...] season) 2024 DEPRESSION SCREENING 11/22/2024 INFLUENZA VACCINE (#1) 2025 Respiratory Syncytial Virus (RSV) Vaccine Pt: [...] topic Insurance MEDICARE MEDICARE MEDICARE Care Teams Bowling Alley Floors Installer Relationship Specialty Start Date End Date Lokesh Carter MD [address] [address] PCP - General 01/04/19
--- OUTSIDE RECORDS SUMMARY | 2025-07-02 10:46 | XMS_ITS | Encounter Summary ---
Author Organization [facility] Healthcare Address [address] [place] [address] Care Team Providers Care Production Tool Engineer Name Role Phone Unavailable Primary Care Provider Unavailabl e Reason for Visit * Diagnostic Imaging (Routine) - Closed Specialty Diagnoses / Procedures Referred By Conthardeep t Referred To Contact Procedures Breast Imaging Screening Outside Reference Suzi Amezquita NP [address] [facility] [id number] [place] [address] Phone: tel: fax: Referral ID Status Reason Start Date Expiration Date Visits Re quested Visits Authorized [id number] Closed 06/17/2023 07/16/2024 1 1 Encounter Details Date Type Department Care Team ([facility] st Contact Info) Description 08/06/2018 Hospital Encounter [facility] [address] [place] [address] Social History Tobacco Use Types Packs/Day [...] on file Legal Sex Female 8:02 AM ASSEMBLY 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 There will be no report generated by a [facility] Radiologist. Narrative [facility] - 06/17/2023 9:36 AM CDT EXAMINATION: Images For Reference Purposes Only us Suzi Amezquita NP IMG MAMMO PROCEDURES Final Result [facility] documented in this encounter Visit Diagnoses Not on filedocumented in this encounter
--- OUTSIDE RECORDS SUMMARY | 2025-07-02 10:46 | XMS_ITS | Clinical Summary ---
Author Organization [facility] Address [address] [address] Phone Care Team Providers Care Glass Science Engineer Name Role Phone Ian Talavera DO Unavailable [phone] Murali Sandeep Primary Care Provider [phone] Medications polyethylene glycol (MIRALAX) Powder Mix the entire bottle with 64 oz of a clear liquid. Use as directed by the office for colonoscopy prep. 255 g 0 6 Active Social History Tobacco Use Types Packs/Day Years Used Date Smoking Tobacco: Never Assessed Comments Unknown Sex and Gender Information Value Date Recorded Sex Assigned at Not on file Legal Sex Female 9:12 AM LEAD DEVELOPER Gender Identity Not on file Sexual Orientation Not on file Plan of Treatment Health Maintenance Due Date Last Done Comments Hepatitis C Virus (HCV) Screening 1961 TdaP Immunization 1961 Pap Smear 1982 Cervical Cancer Screening (CCS) 1991 HPV/Cotest 1991 Cologuard 2006 Immunochemical Fecal Occult Blood 2006 Pneumococcal Immunization (5 0+ years) (1 of 1 - PCV) 2011 Zoster Immunization (1 of 2) 2011 SARS-COV-2 Immunization (1 - 2023- season) 2024 Influenza Immunization (#1) 2025 Colonoscopy 03/12/2026 03/12/2016 Colorectal Cancer Screening 03/12/2026 Respiratory Syncytial Virus (RSV) Immunization (Adult) (1 - 1-dose 75+ series) 2036 Hepatitis B Immunization Aged Out No longer eligible based on patient's age to complete this topic Human Papillomavirus (HPV) Immunization Aged Out No longer eligible b ased [...] to Health Maintenance Insurance MEDICARE Care Teams Glass Science Engineer Relationship Specialty Start Date End Date Murali Sandeep [address] [place] [address] PCP - General Family Medicine 01/02/19 Ian Talavera DO Gastroenterology 03/23/16
--- OUTSIDE RECORDS SUMMARY | 2025-07-02 10:46 | XMS_ITS | Clinical Summary ---
Author Organization 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 BREAST PARENCHYMAL COMPOSITION: The breasts are heterogenously [...] the LEFT breast was performed by the monument stonecutter. BREAST PARENCHYMAL COMPOSITION: The breasts are heterogenously [...] Recently Relevant to Health Maintenance Insurance MEDICARE [facility] MEDICARE [facility] Address: [address] [address] [place] [address] IDPA Care Teams Wool Supplier Relationship Specialty Start Date End Date Ariel Cross MD PCP - General Family Practice 06/10/23 Waleska Garcia MD Referring Physician Obstetrics and Gynecology 06/10/23
--- OUTSIDE RECORDS SUMMARY | 2025-07-02 10:46 | XMS_ITS | Encounter Summary ---
Author Organization [facility] Healthcare Address [address] [place] [address] Care Team Providers Care Refrigerator Assembler Name Role Phone Unavailable Primary Care Provider Unavailabl e Reason for Visit * Diagnostic Imaging (Routine) - Closed Specialty Diagnoses / Procedures Referred By Conthardeep t Referred To Contact Procedures Breast Imaging Screening Outside Reference Suzi Amezquita NP [address] [facility] [id number] [place] [address] Phone: tel: fax: Referral ID Status Reason Start Date Expiration Date Visits Re quested Visits Authorized [id number] Closed 06/17/2023 07/16/2024 1 1 Encounter Details Date Type Department Care Team ([facility] st Contact Info) Description 09/19/2019 Hospital Encounter [facility] [address] [place] [address] Social History Tobacco Use Types Packs/Day [...] on file Legal Sex Female 8:02 AM TACKER ELASTIC BAND Gender Identity Not on file Sexual Orientation [...] only and have not been reviewed by [facility]. There will be no report generated by a [facility] Radiologist. Narrative [facility] - 06/17/2023 9:36 AM CDT EXAMINATION: Images For Reference Purposes Only us Suzi Amezquita NP IMG MAMMO PROCEDURES Final Result [facility] documented in this encounter Visit Diagnoses Not on filedocumented in this encounter
--- OUTSIDE RECORDS SUMMARY | 2025-07-02 10:46 | XMS_ITS | Encounter Summary ---
Author Organization [facility] Healthcare Address [address] [place] [address] Care Team Providers Care Food Mixer Assembler Name Role Phone Unavailable Primary Care Provider Unavailabl e Reason for Visit * Diagnostic Imaging (Routine) - Closed Specialty Diagnoses / Procedures Referred By Conthardeep t Referred To Contact Procedures Breast Imaging Screening Outside Reference Suzi Amezquita NP [address] [facility] [id number] [place] [address] Phone: tel: fax: Referral ID Status Reason Start Date Expiration Date Visits Re quested Visits Authorized [id number] Closed 06/17/2023 07/16/2024 1 1 Encounter Details Date Type Department Care Team ([facility] st Contact Info) Description 11/06/2020 Hospital Encounter [facility] [address] [place] [address] Social History Tobacco Use Types Packs/Day [...] on file Legal Sex Female 8:02 AM PRODUCTION GENERALIST Gender Identity Not on file Sexual Orientation [...] Less than monthly 07/20/2023 1:29 PM Bianca Quintreo CMA documented as of this encounter Plan of Treatment Not on file documented as of this encounter Procedures Procedure Name Priority Date/Time Associated Diagnosis Comments BREAST IMAGING MG SCREENING OUTSIDE REFERENCE Routine 11/06/2020 12:00 AM PRODUCTION GENERALIST documented in this encounter Results * Breast Imaging Screening Outside Reference (11/06/2020 12:00 AM PRODUCTION GENERALIST) Impressions [facility] - 06/17/2023 9:36 AM CDT These images are for Reference purposes only and have not been reviewed by [facility] Radiology. There will be no report generated by a [facility] Radiologist. Narrative [facility] - 06/17/2023 9:36 AM CDT EXAMINATION: Images For Reference Purposes Only us Suzi Amezquita NP IMG MAMMO PROCEDURES Final Result [facility] documented in this encounter Visit Diagnoses Not on filedocumented in this encounter
--- OUTSIDE RECORDS SUMMARY | 2025-07-02 10:46 | XMS_ITS | Encounter Summary ---
Author Organization [facility] Healthcare Address [address] [place] [address] Care Team Providers Care Principle Industrial Hygienist Name Role Phone Unavailable Primary Care Provider Unavailabl e Reason for Visit * Diagnostic Imaging (Routine) - Closed Specialty Diagnoses / Procedures Referred By Conthardeep t Referred To Contact Procedures Breast Imaging Screening Outside Reference Suzi Amezquita NP [address] [facility] [id number] [place] [address] Phone: tel: fax: Referral ID Status Reason Start Date Expiration Date Visits Re quested Visits Authorized [id number] Closed 06/17/2023 07/16/2024 1 1 Encounter Details Date Type Department Care Team ([facility] st Contact Info) Description 07/01/2017 Hospital Encounter [facility] [address] [place] [id number] Social History Tobacco Use Types Packs/Day [...] on file Legal Sex Female 8:02 AM SENIOR 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 There will be no report generated by a [facility] Radiologist. Narrative [facility] - 06/17/2023 9:37 AM CDT EXAMINATION: Images For Reference Purposes Only us Suzi Amezquita NP IMG MAMMO PROCEDURES Final Result [facility] documented in this encounter Visit Diagnoses Not on filedocumented in this encounter
--- NOTE | 2025-07-02 10:47 | EST_ITS ---
Patient Info Name: Aida Benitez Age: 65 years : 1960 Gender: Female Ht: 65 in Wt: 138 lbs BSA: 1.70 m2 HR: 96 bpm BP: 149 / 91 mmHg Exam Date: 07/02/2025 10:47 AM Patient Status: O Admit Date: 07/02/2025 Exam Type: CA stress test treadmill A regadenoson stress test was performed. Staff Attending Provider: Ariel Cross Exercise Technologist: Nathalie Novoa Exercise Physician: Brian Michelle DO Summary 1. 1. Negative Lenard exercise stress test for ischemic ST changes by ECG criteria. 2. 2. Poor functional capacity, achieving 4.7 METs of workload. 3. 3. Baseline hypertension. 4. 4. Appropriate HR response to exercise. 5. 5. Appropriate HR recovery at 1 minute post exercise. 6. 6. No imaging with stress testing. 7. 7. Patient informed of the above results. Protocol: Lenard Stress ECG Details Stage: REST Duration (min): 1 min : 9 sec Speed (mph): 0.0 Grade (%): 0 HR (bpm): 82 SBP (mmHg): 146 DBP (mmHg): 91 METS: --- Stage: REST Duration (min): 9 min : 22 sec Speed (mph): 0.0 Grade (%): 0 HR (bpm): 82 SBP (mmHg): 146 DBP (mmHg): 91 METS: --- Stage: STAGE 1 Duration (min): 1 min : 0 sec Speed (mph): 1.7 Grade (%): 10 HR (bpm): 124 SBP (mmHg): 146 DBP (mmHg): 91 METS: --- Stage: STAGE 1 Duration (min): 2 min : 0 sec Speed (mph): 1.7 Grade (%): 10 HR (bpm): 133 SBP (mmHg): 146 DBP (mmHg): 91 METS: --- Stage: STAGE 1 Duration (min): 3 min : 0 sec Speed (mph): 1.7 Grade (%): 10 HR (bpm): 142 SBP (mmHg): 188 DBP (mmHg): 113 METS: --- Stage: RECOVERY Duration (min): 0 min : 59 sec Speed (mph): 0.0 Grade (%): 0 HR (bpm): 127 SBP (mmHg): 188 DBP (mmHg): 113 METS: --- Stage: RECOVERY Duration (min): 1 min : 59 sec Speed (mph): 0.0 Grade (%): 0 HR (bpm): 80 SBP (mmHg): 188 DBP (mmHg): 113 METS: --- Stage: RECOVERY Duration (min): 2 min : 59 sec Speed (mph): 0.0 Grade (%): 0 HR (bpm): 85 SBP (mmHg): 148 DBP (mmHg): 105 METS: --- Stage: RECOVERY Duration (min): 3 min : 7 sec Speed (mph): 0.0 Grade (%): 0 HR (bpm): 87 SBP (mmHg): 148 DBP (mmHg): 105 METS: --- Rest HR: 82 bpm Peak HR: 145 bpm Rest Sys BP: 146 mmHg Peak Sys BP: 188 mmHg Max Pred HR: 156 bpm % Max Pred HR: 93 % Target HR: 133 bpm Max RPP: 27,260 bpm*mmHg Tello Score: -4 Termination Reason: Reached target heart rate or workload Cardiac Symptoms: Shortness of breath, Baseline cp 3/10 did not get worse with exercise Max ST Seg Deviation: 1.40 mm Total Time: 3 min : 0 sec Rest Phillip BP: 91 mmHg Peak Phillip BP: 113 mmHg Angina Score: None Total METS: 4.7 Resting ECG Sinus rhythm, anterior infarct, inferior infarct, age indeterminate. Stress ECG No ST changes. Arrhythmias None. Report Signatures
== END 2025-07-02 10:39 | disposition home or self-care (01) ==
PROVIDERS: PCP Family Medicine; Visit Provider Family Medicine
DX: R07.89 Other chest pain (principal)
CPT/HCPCS: 93017

== ENCOUNTER 2025-11-02 14:45 | Outpatient (CLI) | payer MEDICARE, MEDICAID, SELFPAY ==
--- NOTE | ~2025-11-02 | XR_ITS ---
EXAMINATION: XR tibia fibula LT 2V DATE: 11/02/2025 15:13 INDICATION: Injury TECHNIQUE: Left leg x-ray were obtained. COMPARISON: None. FINDINGS: No displaced fracture lucency. No radiopaque foreign body seen. IMPRESSION: 1. No displaced fracture lucency. Reviewed, dictated and finalized at location A. AURANT LINE SERVER
--- NOTE | ~2025-11-02 | XR_ITS ---
EXAMINATION: XR knee LT 3V DATE: 11/02/2025 15:13 INDICATION: Injury TECHNIQUE: Left knee x-rays were obtained. COMPARISON: None. FINDINGS: Mild degenerative appearing changes. No displaced fracture lucency. No radiopaque foreign body or large suprapatellar effusion. IMPRESSION: 1. No displaced fracture lucency. Reviewed, dictated and finalized at location A. SWEEPING OFFICER
== END 2025-11-02 14:46 | disposition home or self-care (01) ==
PROVIDERS: PCP Family Medicine; Visit Provider Family Medicine
DX: M25.562 Pain in left knee (principal); M79.605 Pain in left leg
CPT/HCPCS: 73562; 73590